=== PATIENT | female | born 1940 | race Caucasian/White ===

== ENCOUNTER → 2017-03-19 | Outpatient (CLI) | payer MEDICARE, OTHER ==
[~2017-03-19] MED LIST: CALCIUM + D3 E1 EACH; CHOL10002 PO; CREON DR 6,0001 EACH PO; DOCU100 PO; FERROUS SULFAT140 MG PO; FERSU90EL PO; Hydrocodone-Ap1 EA26 PO; LEVSOD125 PO; ONDA4ODT MM; OXAYDO7.5 MG PO; OXYB5 PO; OXYC5 PO; Omeprazole20 M1 PO; PANT20 PO; POTA10T PO; SIME80CH PO; SIMV40 PO
== END | disposition home or self-care (01) ==
LOC: LAB 10:00
DX: T81.31XA Disruption of external operation (surgical) wound, not elsewhere classified, initial encounter (principal)
CPT/HCPCS: 87070; 87205

== ENCOUNTER → 2017-03-20 | Outpatient (CLI) | payer MEDICARE, OTHER | LOC: LAB 13:15 | DX: T81.31XA Disruption of external operation (surgical) wound, not elsewhere classified, initial encounter (principal) | CPT/HCPCS: 87070; 87205 ==

== ENCOUNTER 2017-03-26 12:43 | Day surgery (SDC) | payer MEDICARE, OTHER ==
[2017-09-25] MEDS ORDERED: SIMV40 PO (10:23)
== END 2017-03-26 14:55 | disposition home or self-care (01) ==
LOC: WOUND 12:43
DX: Z48.00 Encounter for change or removal of nonsurgical wound dressing (principal); T81.31XA Disruption of external operation (surgical) wound, not elsewhere classified, initial encounter
CPT/HCPCS: G0463

== ENCOUNTER 2017-04-02 00:57 | Day surgery (SDC) | payer MEDICARE, OTHER ==
[2017-09-25] MEDS ORDERED: SIMV40 PO (10:23)
== END 2017-04-02 22:54 | disposition home or self-care (01) ==
LOC: WOUND 00:57
DX: Z48.00 Encounter for change or removal of nonsurgical wound dressing (principal); T81.31XA Disruption of external operation (surgical) wound, not elsewhere classified, initial encounter; E03.9 Hypothyroidism, unspecified; E78.5 Hyperlipidemia, unspecified
CPT/HCPCS: G0463

== ENCOUNTER 2017-04-06 00:12 | Day surgery (SDC) | payer MEDICARE, OTHER ==
[2017-09-25] MEDS ORDERED: SIMV40 PO (10:23)
== END 2017-04-06 11:55 | disposition home or self-care (01) ==
LOC: WOUND 00:12
DX: Z48.00 Encounter for change or removal of nonsurgical wound dressing (principal); T81.31XA Disruption of external operation (surgical) wound, not elsewhere classified, initial encounter; K50.90 Crohn's disease, unspecified, without complications; E78.5 Hyperlipidemia, unspecified; E03.9 Hypothyroidism, unspecified; Z86.73 Personal history of transient ischemic attack (TIA), and cerebral infarction without residual deficits
CPT/HCPCS: G0463

== ENCOUNTER 2017-04-07 13:20 | Day surgery (SDC) | payer MEDICARE, OTHER ==
[2017-09-25] MEDS ORDERED: SIMV40 PO (10:23)
== END 2017-04-07 14:10 | disposition home or self-care (01) ==
LOC: WOUND 13:20
DX: Z48.00 Encounter for change or removal of nonsurgical wound dressing (principal); T81.31XA Disruption of external operation (surgical) wound, not elsewhere classified, initial encounter; E78.5 Hyperlipidemia, unspecified; E03.9 Hypothyroidism, unspecified; K21.9 Gastro-esophageal reflux disease without esophagitis; K50.90 Crohn's disease, unspecified, without complications
CPT/HCPCS: 74150; G0463

== ENCOUNTER 2017-04-08 00:08 | Day surgery (SDC) | payer MEDICARE, OTHER ==
[2017-09-25] MEDS ORDERED: SIMV40 PO (10:23)
== END 2017-04-08 15:05 | disposition home or self-care (01) ==
LOC: WOUND 00:08
DX: Z48.00 Encounter for change or removal of nonsurgical wound dressing (principal); T81.31XA Disruption of external operation (surgical) wound, not elsewhere classified, initial encounter; E03.9 Hypothyroidism, unspecified; K50.90 Crohn's disease, unspecified, without complications; E78.5 Hyperlipidemia, unspecified; K21.9 Gastro-esophageal reflux disease without esophagitis
CPT/HCPCS: G0463

== ENCOUNTER 2017-04-09 13:40 | Day surgery (SDC) | payer MEDICARE, OTHER ==
[2017-09-25] MEDS ORDERED: SIMV40 PO (10:23)
== END 2017-04-09 14:22 | disposition home or self-care (01) ==
LOC: WOUND 13:40
DX: Z48.01 Encounter for change or removal of surgical wound dressing (principal); T81.31XA Disruption of external operation (surgical) wound, not elsewhere classified, initial encounter; K50.90 Crohn's disease, unspecified, without complications; E78.5 Hyperlipidemia, unspecified; E03.9 Hypothyroidism, unspecified
CPT/HCPCS: G0463

== ENCOUNTER 2017-04-10 13:40 | Day surgery (SDC) | payer MEDICARE, OTHER ==
[2017-09-25] MEDS ORDERED: SIMV40 PO (10:23)
== END 2017-04-10 15:59 | disposition home or self-care (01) ==
LOC: WOUND 13:40
DX: Z48.00 Encounter for change or removal of nonsurgical wound dressing (principal); T81.31XA Disruption of external operation (surgical) wound, not elsewhere classified, initial encounter; K50.90 Crohn's disease, unspecified, without complications; Z90.49 Acquired absence of other specified parts of digestive tract; E78.5 Hyperlipidemia, unspecified; E03.9 Hypothyroidism, unspecified; K21.9 Gastro-esophageal reflux disease without esophagitis
CPT/HCPCS: G0463

== ENCOUNTER 2017-04-13 00:12 | Day surgery (SDC) | payer MEDICARE, OTHER ==
[2017-09-25] MEDS ORDERED: SIMV40 PO (10:23)
== END 2017-04-13 14:35 | disposition home or self-care (01) ==
LOC: WOUND 00:12
DX: Z48.01 Encounter for change or removal of surgical wound dressing (principal); T81.31XA Disruption of external operation (surgical) wound, not elsewhere classified, initial encounter; K50.90 Crohn's disease, unspecified, without complications; K21.9 Gastro-esophageal reflux disease without esophagitis; E03.9 Hypothyroidism, unspecified; Z86.73 Personal history of transient ischemic attack (TIA), and cerebral infarction without residual deficits
CPT/HCPCS: G0463

== ENCOUNTER 2017-04-14 00:37 | Day surgery (SDC) | payer MEDICARE, OTHER ==
[2017-09-25] MEDS ORDERED: SIMV40 PO (10:23)
== END 2017-04-14 13:11 | disposition home or self-care (01) ==
LOC: WOUND 00:37
DX: Z48.01 Encounter for change or removal of surgical wound dressing (principal); T81.31XA Disruption of external operation (surgical) wound, not elsewhere classified, initial encounter; K50.90 Crohn's disease, unspecified, without complications; K21.9 Gastro-esophageal reflux disease without esophagitis; E03.9 Hypothyroidism, unspecified; E78.5 Hyperlipidemia, unspecified
CPT/HCPCS: G0463

== ENCOUNTER 2017-04-15 10:00 | Day surgery (SDC) | payer MEDICARE, OTHER ==
[2017-09-25] MEDS ORDERED: SIMV40 PO (10:23)
== END 2017-04-15 10:19 | disposition home or self-care (01) ==
LOC: WOUND 10:00
DX: Z48.01 Encounter for change or removal of surgical wound dressing (principal); T81.31XA Disruption of external operation (surgical) wound, not elsewhere classified, initial encounter; K50.90 Crohn's disease, unspecified, without complications; E78.5 Hyperlipidemia, unspecified; E03.9 Hypothyroidism, unspecified
CPT/HCPCS: G0463

== ENCOUNTER 2017-04-17 00:31 | Day surgery (SDC) | payer MEDICARE, OTHER ==
[2017-09-25] MEDS ORDERED: SIMV40 PO (10:23)
== END 2017-04-17 08:48 | disposition home or self-care (01) ==
LOC: WOUND 00:31
DX: Z48.01 Encounter for change or removal of surgical wound dressing (principal); T81.31XA Disruption of external operation (surgical) wound, not elsewhere classified, initial encounter; K50.90 Crohn's disease, unspecified, without complications; E78.5 Hyperlipidemia, unspecified; E03.9 Hypothyroidism, unspecified; K21.9 Gastro-esophageal reflux disease without esophagitis
CPT/HCPCS: G0463

== ENCOUNTER 2017-04-20 00:04 | Day surgery (SDC) | payer MEDICARE, OTHER ==
[2017-09-25] MEDS ORDERED: SIMV40 PO (10:23)
== END 2017-04-20 11:15 | disposition home or self-care (01) ==
LOC: WOUND 00:04
DX: Z48.01 Encounter for change or removal of surgical wound dressing (principal); T81.31XA Disruption of external operation (surgical) wound, not elsewhere classified, initial encounter; K50.90 Crohn's disease, unspecified, without complications; K21.9 Gastro-esophageal reflux disease without esophagitis; E78.5 Hyperlipidemia, unspecified; E03.9 Hypothyroidism, unspecified
CPT/HCPCS: G0463

== ENCOUNTER 2017-04-27 00:18 | Day surgery (SDC) | payer MEDICARE, OTHER ==
[2017-09-25] MEDS ORDERED: SIMV40 PO (10:23)
== END 2017-04-27 13:16 | disposition home or self-care (01) ==
LOC: WOUND 00:18
DX: Z48.01 Encounter for change or removal of surgical wound dressing (principal); T81.31XA Disruption of external operation (surgical) wound, not elsewhere classified, initial encounter; K50.90 Crohn's disease, unspecified, without complications; E78.5 Hyperlipidemia, unspecified; E03.9 Hypothyroidism, unspecified
CPT/HCPCS: G0463

== ENCOUNTER 2017-05-04 10:12 | Day surgery (SDC) | payer MEDICARE, OTHER ==
[2017-09-25] MEDS ORDERED: SIMV40 PO (10:23)
== END 2017-05-04 22:59 | disposition home or self-care (01) ==
LOC: WOUND 10:12
DX: Z48.01 Encounter for change or removal of surgical wound dressing (principal); T81.31XA Disruption of external operation (surgical) wound, not elsewhere classified, initial encounter; K50.90 Crohn's disease, unspecified, without complications; E78.5 Hyperlipidemia, unspecified; E03.9 Hypothyroidism, unspecified; K21.9 Gastro-esophageal reflux disease without esophagitis
CPT/HCPCS: G0463

== ENCOUNTER → 2017-09-09 | Outpatient (CLI) | payer MEDICARE, OTHER ==
[2017-09-09 09:57] LABS: BASOPHILS ABSOLUTE AUTO 0.06 K/mm3 (0.00-0.23); BASOPHILS PERCENT AUTO 1 % (0-2); EOSINOPHILS ABSOLUTE AUTO 0.28 K/mm3 (0.00-0.68); EOSINOPHILS PERCENT AUTO 3 % (0-6); Hematocrit 35.2 % (33.0-51.0); Hemoglobin 10.9 g/dL (11.5-16.0); IMMATURE GRAN ABSOLUTE AUTO 0.03 K/mm3 (0.00-0.10); IMMATURE GRAN PERCENT AUTO 0 % (0-1); LYMPHOCYTES PERCENT AUTO 14 % (21-46); MONOCYTES ABSOLUTE AUTO 0.69 K/mm3 (0.16-1.47); MONOCYTES PERCENT AUTO 8 % (4-13); Mean Corpuscular HGB 24.4 pg (26.0-34.0); Mean Corpuscular Volume 79 fL (80-100); Mean Platelet Volume 10.4 fL (9.1-12.4); NEUTROPHILS ABSOLUTE AUTO 6.46 K/mm3 (1.96-9.15); NEUTROPHILS PERCENT AUTO 74 % (41-73); Platelet Count 259 K/mm3 (150-400); RDW Coefficient Variation 15.7 % (11.7-14.2); RDW Standard Deviation 44.4 fL (35.1-46.3); Red Blood Cell Count 4.47 M/mm3 (3.80-5.20); White Blood Cell Count 8.72 K/mm3 (4.00-11.30)
[2017-09-09 10:18] LABS: Albumin, Blood 3.4 g/dL (3.4-5.0); Albumin/Globulin Ratio 0.8 (0.8-1.8); Bilirubin, Total 0.5 mg/dL (0.1-1.0); Bun/Creatinine Ratio 19.3 (12.0-20.0); Calcium, Blood 10.2 mg/dL (8.5-10.1); Creatinine, Blood 1.19 mg/dL (0.40-1.00); Globulin, Blood 4.2 g/dL (2.2-4.0); Potassium, Blood 4.5 mmol/L (3.5-5.5); Total Protein, Blood 7.6 g/dL (6.4-8.2)
== END | disposition home or self-care (01) ==
LOC: LAB EV 09:53 → LAB SHORT 09:53
PROVIDERS: Physician Assistant Medical
DX: R10.84 Generalized abdominal pain (principal)
CPT/HCPCS: 80053; 83690; 85025

== ENCOUNTER → 2017-09-25 | Outpatient (CLI) | payer MEDICARE, OTHER | LOC: LAB EV 12:08 → LAB SHORT 12:08 | DX: Z53.9 Procedure and treatment not carried out, unspecified reason (principal) | CPT/HCPCS: 87070; 87075; 87205 ==

== ENCOUNTER 2017-11-11 07:40 | Day surgery (SDC) | payer MEDICARE, OTHER | END 2017-11-11 22:52 | disposition home or self-care (01) | LOC: WOUND 07:40 | DX: Z48.01 Encounter for change or removal of surgical wound dressing (principal); Z87.891 Personal history of nicotine dependence; T81.31XA Disruption of external operation (surgical) wound, not elsewhere classified, initial encounter; E78.5 Hyperlipidemia, unspecified | CPT/HCPCS: G0463 ==

== ENCOUNTER 2017-11-18 07:53 | Day surgery (SDC) | payer MEDICARE, OTHER | END 2017-11-18 22:43 | disposition home or self-care (01) | LOC: WOUND 07:53 | DX: T81.31XA Disruption of external operation (surgical) wound, not elsewhere classified, initial encounter (principal); R03.0 Elevated blood-pressure reading, without diagnosis of hypertension; Z86.73 Personal history of transient ischemic attack (TIA), and cerebral infarction without residual deficits; E78.5 Hyperlipidemia, unspecified | CPT/HCPCS: G0463 ==

== ENCOUNTER 2017-11-23 12:22 | Day surgery (SDC) | payer MEDICARE, OTHER | END 2017-11-23 12:45 | disposition home or self-care (01) | LOC: WOUND 12:22 | DX: T81.31XD Disruption of external operation (surgical) wound, not elsewhere classified, subsequent encounter (principal); R03.0 Elevated blood-pressure reading, without diagnosis of hypertension; E78.5 Hyperlipidemia, unspecified; Z86.73 Personal history of transient ischemic attack (TIA), and cerebral infarction without residual deficits | CPT/HCPCS: G0463 ==

== ENCOUNTER 2017-11-25 07:39 | Day surgery (SDC) | payer MEDICARE, OTHER | END 2017-11-25 22:49 | disposition home or self-care (01) | LOC: WOUND 07:39 | DX: Z48.01 Encounter for change or removal of surgical wound dressing (principal); T81.31XD Disruption of external operation (surgical) wound, not elsewhere classified, subsequent encounter; R03.0 Elevated blood-pressure reading, without diagnosis of hypertension; Z86.73 Personal history of transient ischemic attack (TIA), and cerebral infarction without residual deficits; E78.5 Hyperlipidemia, unspecified | CPT/HCPCS: G0463 ==

== ENCOUNTER 2017-12-04 00:03 | Day surgery (SDC) | payer MEDICARE, OTHER | END 2017-12-04 22:48 | disposition home or self-care (01) | LOC: WOUND 00:03 | DX: T81.31XD Disruption of external operation (surgical) wound, not elsewhere classified, subsequent encounter (principal); E78.5 Hyperlipidemia, unspecified; Z86.73 Personal history of transient ischemic attack (TIA), and cerebral infarction without residual deficits; R03.0 Elevated blood-pressure reading, without diagnosis of hypertension | CPT/HCPCS: G0463 ==

== ENCOUNTER 2017-12-25 00:29 | Day surgery (SDC) | payer MEDICARE, OTHER | END 2017-12-25 22:49 | disposition home or self-care (01) | LOC: WOUND 00:29 | DX: T81.31XA Disruption of external operation (surgical) wound, not elsewhere classified, initial encounter (principal); S31.109A Unspecified open wound of abdominal wall, unspecified quadrant without penetration into peritoneal cavity, initial encounter; R03.0 Elevated blood-pressure reading, without diagnosis of hypertension; Z86.73 Personal history of transient ischemic attack (TIA), and cerebral infarction without residual deficits; E78.5 Hyperlipidemia, unspecified | CPT/HCPCS: 87070; 87075; 87205; G0463 ==

== ENCOUNTER 2017-12-29 00:07 | Day surgery (SDC) | payer MEDICARE, OTHER | END 2017-12-29 23:03 | disposition home or self-care (01) | LOC: WOUND 00:07 | DX: T81.31XA Disruption of external operation (surgical) wound, not elsewhere classified, initial encounter (principal); R03.0 Elevated blood-pressure reading, without diagnosis of hypertension ==

== ENCOUNTER 2018-01-01 00:35 | Day surgery (SDC) | payer MEDICARE, OTHER | END 2018-01-01 23:05 | disposition home or self-care (01) | LOC: WOUND 00:35 | DX: Z48.01 Encounter for change or removal of surgical wound dressing (principal); T81.31XD Disruption of external operation (surgical) wound, not elsewhere classified, subsequent encounter; R03.0 Elevated blood-pressure reading, without diagnosis of hypertension | CPT/HCPCS: G0463 ==

== ENCOUNTER 2018-02-16 00:14 | Day surgery (SDC) | payer MEDICARE, OTHER | END 2018-02-16 22:42 | disposition home or self-care (01) | LOC: WOUND 00:14 | DX: T81.31XD Disruption of external operation (surgical) wound, not elsewhere classified, subsequent encounter (principal); T81.83XD Persistent postprocedural fistula, subsequent encounter; R03.0 Elevated blood-pressure reading, without diagnosis of hypertension | CPT/HCPCS: 87070; 87075; 87077; 87186; 87205; G0463 ==

== ENCOUNTER 2018-02-17 14:33 | Day surgery (SDC) | payer MEDICARE, OTHER | END 2018-02-17 22:52 | disposition home or self-care (01) | LOC: WOUND 14:33 | DX: T81.31XD Disruption of external operation (surgical) wound, not elsewhere classified, subsequent encounter (principal); T81.83XD Persistent postprocedural fistula, subsequent encounter; R03.0 Elevated blood-pressure reading, without diagnosis of hypertension | CPT/HCPCS: G0463 ==

== ENCOUNTER 2018-02-19 00:10 | Day surgery (SDC) | payer MEDICARE, OTHER | END 2018-02-19 23:15 | disposition home or self-care (01) | LOC: WOUND 00:10 | DX: T81.31XD Disruption of external operation (surgical) wound, not elsewhere classified, subsequent encounter (principal); T81.83XD Persistent postprocedural fistula, subsequent encounter; R03.0 Elevated blood-pressure reading, without diagnosis of hypertension | CPT/HCPCS: G0463 ==

== ENCOUNTER 2018-02-22 00:13 | Day surgery (SDC) | payer MEDICARE, OTHER | END 2018-02-22 22:45 | disposition home or self-care (01) | LOC: WOUND 00:13 | DX: T81.31XD Disruption of external operation (surgical) wound, not elsewhere classified, subsequent encounter (principal); T81.83XD Persistent postprocedural fistula, subsequent encounter; R03.0 Elevated blood-pressure reading, without diagnosis of hypertension | CPT/HCPCS: G0463 ==

== ENCOUNTER 2018-02-26 07:47 | Day surgery (SDC) | payer MEDICARE, OTHER | END 2018-02-26 22:57 | disposition home or self-care (01) | LOC: WOUND 07:47 | DX: T81.31XD Disruption of external operation (surgical) wound, not elsewhere classified, subsequent encounter (principal); T81.83XD Persistent postprocedural fistula, subsequent encounter; R03.0 Elevated blood-pressure reading, without diagnosis of hypertension | CPT/HCPCS: G0463 ==

== ENCOUNTER 2018-03-05 07:46 | Day surgery (SDC) | payer MEDICARE, OTHER | END 2018-03-05 22:39 | disposition home or self-care (01) | LOC: WOUND 07:46 | DX: T81.31XD Disruption of external operation (surgical) wound, not elsewhere classified, subsequent encounter (principal); T81.83XD Persistent postprocedural fistula, subsequent encounter; R03.0 Elevated blood-pressure reading, without diagnosis of hypertension | CPT/HCPCS: G0463 ==

== ENCOUNTER 2018-03-12 00:04 | Day surgery (SDC) | payer MEDICARE, OTHER | END 2018-03-12 22:45 | disposition home or self-care (01) | LOC: WOUND 00:04 | DX: T81.31XD Disruption of external operation (surgical) wound, not elsewhere classified, subsequent encounter (principal); T81.83XD Persistent postprocedural fistula, subsequent encounter; R03.0 Elevated blood-pressure reading, without diagnosis of hypertension | CPT/HCPCS: G0463 ==

== ENCOUNTER 2018-03-26 07:50 | Day surgery (SDC) | payer MEDICARE, OTHER | END 2018-03-26 23:10 | disposition home or self-care (01) | LOC: WOUND 07:50 | DX: T81.31XD Disruption of external operation (surgical) wound, not elsewhere classified, subsequent encounter (principal); T81.83XD Persistent postprocedural fistula, subsequent encounter; R03.0 Elevated blood-pressure reading, without diagnosis of hypertension | CPT/HCPCS: G0463 ==

== ENCOUNTER 2018-04-08 07:50 | Day surgery (SDC) | payer MEDICARE, OTHER | END 2018-04-08 23:09 | disposition home or self-care (01) | LOC: WOUND 07:50 | DX: Z48.01 Encounter for change or removal of surgical wound dressing (principal); T81.31XA Disruption of external operation (surgical) wound, not elsewhere classified, initial encounter; T81.83XA Persistent postprocedural fistula, initial encounter; R03.0 Elevated blood-pressure reading, without diagnosis of hypertension | CPT/HCPCS: G0463 ==

== ENCOUNTER 2018-04-11 09:25 | Emergency (ER) | payer MEDICARE, OTHER ==
[~2018-04-11] VITALS: Ht 157.5 cm; Wt 71.2 kg
[2018-04-11 09:41] LABS: BASOPHILS ABSOLUTE AUTO 0.03 K/mm3 (0.00-0.23); BASOPHILS PERCENT AUTO 0 % (0-2); EOSINOPHILS ABSOLUTE AUTO 0.21 K/mm3 (0.00-0.68); EOSINOPHILS PERCENT AUTO 3 % (0-6); Hematocrit 28.9 % (33.0-51.0); Hemoglobin 8.5 g/dL (11.5-16.0); IMMATURE GRAN ABSOLUTE AUTO 0.12 K/mm3 (0.00-0.10); IMMATURE GRAN PERCENT AUTO 2 % (0-1); LYMPHOCYTES ABSOLUTE AUTO 1.01 K/mm3 (0.84-5.20); LYMPHOCYTES PERCENT AUTO 13 % (21-46); MONOCYTES ABSOLUTE AUTO 0.72 K/mm3 (0.16-1.47); MONOCYTES PERCENT AUTO 9 % (4-13); Mean Corpuscular HGB 21.4 pg (26.0-34.0); Mean Corpuscular HGB Conc 29.4 g/dL (31.5-36.5); Mean Corpuscular Volume 73 fL (80-100); Mean Platelet Volume 8.5 fL (9.1-12.4); NEUTROPHILS ABSOLUTE AUTO 5.86 K/mm3 (1.96-9.15); NEUTROPHILS PERCENT AUTO 74 % (41-73); Platelet Count 294 K/mm3 (150-400); RDW Coefficient Variation 15.9 % (11.7-14.2); RDW Standard Deviation 41.4 fL (35.1-46.3); Red Blood Cell Count 3.98 M/mm3 (3.80-5.20); White Blood Cell Count 7.95 K/mm3 (4.00-11.30)
[2018-04-11 09:58] LABS: Alanine Aminotransfer (ALT/SGP <6 U/L (12-78); Albumin, Blood 2.6 g/dL (3.4-5.0); Albumin/Globulin Ratio 0.5 (0.8-1.8); Alk Phos 117 U/L (50-136); Anion Gap 12 mmol/L (6-16); Aspartate Aminotrans (AST/SGOT 8 U/L (12-37); Bilirubin, Total 0.4 mg/dL (0.1-1.0); Blood Urea Nitrogen 18 mg/dL (8-24); Bun/Creatinine Ratio 13.6 (12.0-20.0); CO2, Blood 21 mmol/L (21-32); Calcium, Blood 9.6 mg/dL (8.5-10.1); Chloride, Blood 110 mmol/L (98-108); Creatinine, Blood 1.32 mg/dL (0.40-1.00); Glomerular Filtration Rate 41 (60-); Glucose, Blood 122 mg/dL (70-99); Potassium, Blood 3.4 mmol/L (3.5-5.5); Sodium, Blood 143 mmol/L (136-145); Total Protein, Blood 7.6 g/dL (6.4-8.2)
[2018-04-11] MEDS ORDERED: Cipro500 MG PO (11:57)
[2018-04-11] MEDS ORDERED: Flagyl500 MG PO (11:57)
== END 2018-04-11 12:46 | disposition home or self-care (01) ==
LOC: ER 09:25
PROVIDERS: Emergency Medicine
DX: T81.41XA Infection following a procedure, superficial incisional surgical site, initial encounter (principal); L02.211 Cutaneous abscess of abdominal wall; Z79.899 Other long term (current) drug therapy
CPT/HCPCS: 74177; 80053; 85025; 96374-59; 99284-25; J1170; Q9967

== ENCOUNTER 2018-04-22 00:11 | Day surgery (SDC) | payer MEDICARE, OTHER ==
[~2018-04-22 00:11] MED LIST changes: +Cipro500 MG PO; +Flagyl500 MG PO
== END 2018-04-22 22:45 | disposition home or self-care (01) ==
LOC: WOUND 00:11
DX: T81.31XD Disruption of external operation (surgical) wound, not elsewhere classified, subsequent encounter (principal); T81.83XD Persistent postprocedural fistula, subsequent encounter; R03.0 Elevated blood-pressure reading, without diagnosis of hypertension; K43.3 Parastomal hernia with obstruction, without gangrene
CPT/HCPCS: G0463

== ENCOUNTER 2018-05-20 00:39 | Day surgery (SDC) | payer MEDICARE, OTHER | END 2018-05-20 12:00 | disposition home or self-care (01) | LOC: WOUND 00:39 | DX: T81.31XA Disruption of external operation (surgical) wound, not elsewhere classified, initial encounter (principal); T81.83XA Persistent postprocedural fistula, initial encounter; L98.492 Non-pressure chronic ulcer of skin of other sites with fat layer exposed; K43.3 Parastomal hernia with obstruction, without gangrene; R03.0 Elevated blood-pressure reading, without diagnosis of hypertension; E78.5 Hyperlipidemia, unspecified; Z86.73 Personal history of transient ischemic attack (TIA), and cerebral infarction without residual deficits ==

== ENCOUNTER 2018-06-07 13:06 | Day surgery (SDC) | payer MEDICARE, OTHER ==
[~2018-06-07] VITALS: Ht 157.5 cm; Wt 68.2 kg
[2018-06-07] MEDS ORDERED: ESOM20 PO (13:34)
--- NOTE | 2018-06-07 13:38 | NUR ---
History, Chart, Medications and Allergies reviewed before start of procedure. Patient confirms NPO status and agrees with scheduled surgery. Lungs clear T/O to Auscultation. Patient states colon prep results clear. Patient States Post-Procedure ride home has been arranged. Pre-Op teaching done. Pt verbalizes understanding.
--- NOTE | 2018-06-07 15:09 | NUR ---
06/07/18 1509 Carlos Manuel Meade History, Chart, Medications and Allergies reviewed before start of procedure.MONITOR INTACT WITH CONTINUOUS PULSE OXIMETRY AND INTERMITTENT BP.3-LEAD EKG REVIEWED WITH PHYSICIAN PRIOR TO START OF PROCEDURE.O2 VIA N/C INTACT THROUGHOUT SEDATION/PROCEDURE. Patient confirms NPO status and agrees with scheduled surgery.PATIENT DETERMINED TO BE ASA APPROPRIATE FOR PROPOFOL SEDATION PRIOR TO START OF PROCEDURE BY DR. CAZARES.
== END 2018-06-07 16:48 | disposition home or self-care (01) ==
LOC: ORSCMMR 13:06 → ORD 14:30 → ORSCMMR 16:48
PROVIDERS: Student in an Organized Health Care Education/Training Program
PROC: 0DB68ZX Excision of Stomach, Via Natural or Artificial Opening Endoscopic, Diagnostic (ICD-10-PCS; principal; 2018-06-07 14:30)
PROC: 0DBE8ZX Excision of Large Intestine, Via Natural or Artificial Opening Endoscopic, Diagnostic (ICD-10-PCS; principal; 2018-06-07 14:30)
PROC: 0DBB8ZX Excision of Ileum, Via Natural or Artificial Opening Endoscopic, Diagnostic (ICD-10-PCS; principal; 2018-06-07 14:30)
DX: K50.90 Crohn's disease, unspecified, without complications (principal); R19.7 Diarrhea, unspecified; I12.9 Hypertensive chronic kidney disease with stage 1 through stage 4 chronic kidney disease, or unspecified chronic kidney disease; N18.9 Chronic kidney disease, unspecified; D50.9 Iron deficiency anemia, unspecified; Z86.73 Personal history of transient ischemic attack (TIA), and cerebral infarction without residual deficits; E03.9 Hypothyroidism, unspecified; Z87.891 Personal history of nicotine dependence; Z79.899 Other long term (current) drug therapy
CPT/HCPCS: 88305; 88342; J2704; J7120

== ENCOUNTER 2018-06-17 07:45 | Day surgery (SDC) | payer MEDICARE, OTHER ==
[~2018-06-17 07:45] MED LIST changes: +ESOM20 PO
== END 2018-06-17 23:38 | disposition home or self-care (01) ==
LOC: WOUND 07:45
DX: T81.31XA Disruption of external operation (surgical) wound, not elsewhere classified, initial encounter (principal); T81.83XA Persistent postprocedural fistula, initial encounter; K43.3 Parastomal hernia with obstruction, without gangrene
CPT/HCPCS: G0463

== ENCOUNTER 2018-08-10 11:56 | Day surgery (SDC) | payer MEDICARE, OTHER | END 2018-08-10 23:27 | disposition home or self-care (01) | LOC: WOUND 11:56 | DX: T81.31XA Disruption of external operation (surgical) wound, not elsewhere classified, initial encounter (principal); T81.83XA Persistent postprocedural fistula, initial encounter; I10 Essential (primary) hypertension; E55.9 Vitamin D deficiency, unspecified; D64.9 Anemia, unspecified; Z87.891 Personal history of nicotine dependence; Z86.73 Personal history of transient ischemic attack (TIA), and cerebral infarction without residual deficits ==

== ENCOUNTER 2018-09-13 08:35 | Day surgery (SDC) | payer MEDICARE, OTHER | END 2018-09-13 22:45 | disposition home or self-care (01) | LOC: WOUND 08:35 | DX: T81.83XA Persistent postprocedural fistula, initial encounter (principal); T81.31XA Disruption of external operation (surgical) wound, not elsewhere classified, initial encounter; D64.9 Anemia, unspecified | CPT/HCPCS: G0463 ==

== ENCOUNTER 2018-10-11 00:12 | Day surgery (SDC) | payer MEDICARE, OTHER | END 2018-10-11 22:54 | disposition home or self-care (01) | LOC: WOUND 00:12 | DX: T81.83XA Persistent postprocedural fistula, initial encounter (principal) | CPT/HCPCS: G0463 ==

== ENCOUNTER 2018-10-24 16:08 | Inpatient (IN) | payer MEDICARE, OTHER ==
[~2018-10-24] VITALS: Ht 157.5 cm; Wt 78.7 kg
[2018-10-24 16:29] LABS: BASOPHILS ABSOLUTE AUTO 0.01 K/mm3 (0.00-0.23); BASOPHILS PERCENT AUTO 0 % (0-2); EOSINOPHILS ABSOLUTE AUTO 0.01 K/mm3 (0.00-0.68); EOSINOPHILS PERCENT AUTO 0 % (0-6); Hematocrit 26.4 % (33.0-51.0); IMMATURE GRAN ABSOLUTE AUTO 0.08 K/mm3 (0.00-0.10); IMMATURE GRAN PERCENT AUTO 1 % (0-1); LYMPHOCYTES ABSOLUTE AUTO 0.15 K/mm3 (0.84-5.20); LYMPHOCYTES PERCENT AUTO 3 % (21-46); MONOCYTES ABSOLUTE AUTO 0.02 K/mm3 (0.16-1.47); MONOCYTES PERCENT AUTO 0 % (4-13); Mean Corpuscular HGB 18.1 pg (26.0-34.0); Mean Corpuscular HGB Conc 26.5 g/dL (31.5-36.5); Mean Corpuscular Volume 68 fL (80-100); Mean Platelet Volume 9.2 fL (9.1-12.4); NEUTROPHILS ABSOLUTE AUTO 5.27 K/mm3 (1.96-9.15); NEUTROPHILS PERCENT AUTO 95 % (41-73); Platelet Count 323 K/mm3 (150-400); RDW Coefficient Variation 17.2 % (11.7-14.2); RDW Standard Deviation 41.9 fL (35.1-46.3); Red Blood Cell Count 3.87 M/mm3 (3.80-5.20); White Blood Cell Count 5.54 K/mm3 (4.00-11.30)
[2018-10-24 16:51] LABS: Albumin, Blood 2.6 g/dL (3.4-5.0); Albumin/Globulin Ratio 0.5 (0.8-1.8); Bilirubin, Total 0.4 mg/dL (0.1-1.0); Bun/Creatinine Ratio 18.9 (12.0-20.0); Calcium, Blood 9.2 mg/dL (8.5-10.1); Creatinine, Blood 1.27 mg/dL (0.40-1.00); Globulin, Blood 4.8 g/dL (2.2-4.0); Potassium, Blood 3.9 mmol/L (3.5-5.5); Total Protein, Blood 7.4 g/dL (6.4-8.2)
[2018-10-24] MEDS ORDERED: NAPR220 PO (17:36)
[2018-10-24 22:55] LABS: Hematocrit 23.3 % (33.0-51.0); Hemoglobin 6.3 g/dL (11.5-16.0)
--- NOTE | 2018-10-25 | NUR ---
ARRIVAL TO ICU PT ARRIVED TO ICU APPROXIMATELY 2004. ON ARRIVAL, PT ALERT AND ORIENTED, COOPERATIVE BUT REPORTS FATIGUE AND DIZZINESS. BP BORDERINLINE, HR 100'S. PT HAS LOW GRADE FEVER. ADMISSION HISTORY AND ASSESSMENT COMPLETED FROM CHARTS AND WITH ASSISTANCE FROM PATIENT AND DAUGHTER. PT HAS HAD MULTIPLE VISITORS SINCE ARRIVAL. DISCUSSED CODE STATUS WITH PATIENT. ALSO VERIFIED DECLINATION OF BLOOD PRODUCTS EVEN IN INSTANCE WHEN THIS INTERVENTION WOULD BE LIFE SAVING. SINCE THEN, PT'S BLOOD PRESSURE DROPPING. SEE FLOWSHEET. IN COMMUNICATION WITH HOSPITALISTS, MULTIPLE ORDERS FOR INCREASED FLUIDS RECEIVED. PT RESTING QUITELY, CONTINUES TO WAKE UP AND BE ORIENTED WITH VERBAL STIMULI. H&H CONTINUES TO DROP. PT EDUCATED EXTENSIVELY AND EXHIBITS KNOWLEDGE. LACTIC ACID IMPROVING.
[2018-10-25 00:37] LABS: Adenovirus F 40/41 Not Detected (NOT DETECT); Astrovirus Not Detected (NOT DETECT); Campylobacter Sp Not Detected (NOT DETECT); Cryptosporidium Not Detected (NOT DETECT); Cyclospora Cayetanensis Not Detected (NOT DETECT); E. Coli O157 Not Detected (NOT DETECT); Entamoeba Histolytica Not Detected (NOT DETECT); Enteroaggregative E. coli-EAEC Not Detected (NOT DETECT); Enteropathogenic E. coli-EPEC Not Detected (NOT DETECT); Enterotoxigenic E. coli-ETEC Not Detected (NOT DETECT); Giardia Lamblia Not Detected (NOT DETECT); Norovirus GI/GII Not Detected (NOT DETECT); Plesiomonas Shigelloides Not Detected (NOT DETECT); Rotavirus A Not Detected (NOT DETECT); Salmonella Sp Not Detected (NOT DETECT); Sapovirus Not Detected (NOT DETECT); Shiga Toxin-prod E. coli-STEC Not Detected (NOT DETECT); Shigella/Enteroin E. coli-EIEC Not Detected (NOT DETECT); Vibrio Cholerae Not Detected (NOT DETECT); Vibrio Sp Not Detected (NOT DETECT); Yersinia Enterocolitica Not Detected (NOT DETECT)
--- NOTE | 2018-10-25 00:54 | NUR ---
BLOOD PRESSURE / PROVIDER COMMUNICATION PT'S BLOOD PRESSURE CONTINUES TO BE LOW AFTER MULTIPLE BOLUSES. NO ACTIVE BLEEDING VISIBLE. PT CONTINUES TO AROUSE AND BE ORIENTED, BUT REPORTS FEELING EXHAUSTED. TROPONIN INCREASED. DR. SWARTZ UPDATED. NEW ORDER FOR 1 L BOLUS AND REPEAT LACTIC ACID ALONG WITH ALL SCHEDULED MORNING LABS AT 0200. DR. SWARTZ DISCUSSED POSSIBLE PERIPHERAL LOW DOSE DOPAMINE IF MAP NOT GREATER THAN [address] SWARTZ TO BEDSIDE FOR ASSESSMENT AND DISCUSSION WITH PATIENT. PT AGREEABLE TO PRESSOR MEDICATIONS. PT ASKED DR. SWARTZ ABOUT IRON REPLACEMENT. PT EDUCATED BY MD ABOUT ONSET OF IRON SUPPLEMENTATION AND NEED FOR FASTER ACTING INTERVENTIONS.
[2018-10-25 02:12] LABS: BASOPHILS ABSOLUTE AUTO 0.06 K/mm3 (0.00-0.23); BASOPHILS PERCENT AUTO 0 % (0-2); Hematocrit 21.2 % (33.0-51.0); LYMPHOCYTES ABSOLUTE AUTO 0.25 K/mm3 (0.84-5.20); LYMPHOCYTES PERCENT AUTO 1 % (21-46); MONOCYTES ABSOLUTE AUTO 0.56 K/mm3 (0.16-1.47); MONOCYTES PERCENT AUTO 2 % (4-13); Mean Corpuscular HGB 18.4 pg (26.0-34.0); Mean Corpuscular HGB Conc 27.4 g/dL (31.5-36.5); Mean Corpuscular Volume 67 fL (80-100); Mean Platelet Volume 9.5 fL (9.1-12.4); NRBC ABSOLUTE 0.02 K/mm3 (0.00-0.02); NRBC Auto 0.1 /100 WBC (0.0-0.2); Platelet Count 263 K/mm3 (150-400); RDW Coefficient Variation 17.3 % (11.7-14.2); RDW Standard Deviation 42.2 fL (35.1-46.3); Red Blood Cell Count 3.16 M/mm3 (3.80-5.20); White Blood Cell Count 35.03 K/mm3 (4.00-11.30)
[2018-10-25 02:16] LABS: EOSINOPHILS ABSOLUTE AUTO 0.03 K/mm3 (0.00-0.68); EOSINOPHILS PERCENT AUTO 0 % (0-6); Hemoglobin 5.8 g/dL (11.5-16.0); IMMATURE GRAN ABSOLUTE AUTO 0.59 K/mm3 (0.00-0.10); IMMATURE GRAN PERCENT AUTO 2 % (0-1); NEUTROPHILS ABSOLUTE AUTO 33.54 K/mm3 (1.96-9.15); NEUTROPHILS PERCENT AUTO 96 % (41-73)
[2018-10-25 02:28] LABS: BAND PERCENT MAN 14 % (0-8); BASOPHILS PERCENT MAN 0 % (0-2); EOSINOPHILS PERCENT MAN 0 % (0-6); METAMYELOCYTE ABSOLUTE MAN 0.35 K/mm3 (0.00-0.00); METAMYELOCYTE PERCENT MAN 1 % (0-0); MONOCYTES PERCENT MAN 0 % (4-13); NEUTROPHILS ABSOLUTE MAN 34.67 K/mm3 (1.96-9.15); SEG NEUTROPHILS PERCENT MAN 85 % (41-73); TOTAL CELLS COUNTED 100
[2018-10-25 02:34] LABS: Bun/Creatinine Ratio 16.8 (12.0-20.0); Calcium, Blood 8.3 mg/dL (8.5-10.1); Creatinine, Blood 1.31 mg/dL (0.40-1.00); Potassium, Blood 3.8 mmol/L (3.5-5.5); Troponin I 0.213 ng/mL (0.000-0.040)
[2018-10-25 02:36] LABS: Thyroid Stimulating Hormone 0.748 uIU/mL (0.360-4.800)
--- NOTE | 2018-10-25 02:51 | NUR ---
CRITICAL VALUES / BLOOD PRESSURE UPDATED DR. SWARTZ ON MOST RECENT HEMOGLOBIN, HEMATOCRIT, LACTIC AND BLOOD PRESSURES. NEW ORDER TO INITIATE DOPAMINE TO MAINTAIN MAP GREATER THAN 60, CHANGE FLUIDS TO NORMAL SALINE AT 150 ML/HR. PER DR. BELLE, CONTINUE WITH PLAN TO HAVE DR. TAMAYO CONSULT IN MORNING NO BLEEDING HAS BEEN VISIUALIZED AT THIS POINT. PT CONTINUES TO BE AROUSABLE AND ORIENTED.
[2018-10-25 05:27] LABS: Source, Urine Catheter
[2018-10-25 05:30] LABS: Appearance, Urine Clear (Clear); Bilirubin, Urine Neg (Neg); Blood, Urine Neg (Neg); Color, Urine Amber (P-Yellow); Glucose Qualitative, Urine Neg (Neg); Ketones, Urine Neg (Neg); Leukocyte Esterase, Urine 1+ (Neg); Nitrite, Urine Neg (Neg); Protein, Urine 1+ (Neg); Urobilinogen, Urine NORM (Normal)
[2018-10-25 05:37] LABS: Amorphous Light (0-Heavy); Bacteria Few /hpf; Red Blood Cells, Urine 0-2 /hpf (0-2); Squamous Epithelial Cells Rare /hpf (Few)
[2018-10-25 06:19] LABS: Mean Corpuscular HGB 18.2 pg (26.0-34.0); Mean Corpuscular HGB Conc 27.3 g/dL (31.5-36.5); Mean Corpuscular Volume 67 fL (80-100); Mean Platelet Volume 9.2 fL (9.1-12.4); NRBC ABSOLUTE 0.02 K/mm3 (0.00-0.02); NRBC Auto 0.1 /100 WBC (0.0-0.2); Platelet Count 265 K/mm3 (150-400); RDW Coefficient Variation 17.3 % (11.7-14.2); RDW Standard Deviation 41.9 fL (35.1-46.3); Red Blood Cell Count 3.29 M/mm3 (3.80-5.20); White Blood Cell Count 37.91 K/mm3 (4.00-11.30)
--- NOTE | 2018-10-25 06:23 | NUR ---
SUMMARY SINCE PREVIOUS NOTE, PT HAS RECEIVED ORDERED FLUIDS. BLOOD PRESSURE HAS STABALIZED WITH MAPS GREATER THAN 6O, SO DOPAMINE HAS NOT BEEN STARTED. HR STABLE IN 90'S-100'S. PT DOES HAVE AN INCREASED TEMP THIS MORNING, EXTRA BLANKETS REMOVED. CONTINUES TO BE NO VISIBLE BLEEDING. BUCIO INSERTED FOR RETENTION AND STRICT I/O HOURLY MONITORING. PT MORE TALKATIVE AND SMILING THIS MORNING, REPORTS FEELING "A LITTLE BETTER." OTHERWISE, NO CHANGES. SEE FLOWSHEETS.
[2018-10-25 07:08] LABS: BAND PERCENT MAN 26 % (0-8); BASOPHILS ABSOLUTE MAN 0.37 K/mm3 (0.00-0.23); BASOPHILS PERCENT MAN 1 % (0-2); EOSINOPHILS PERCENT MAN 0 % (0-6); MONOCYTES ABSOLUTE MAN 0.37 K/mm3 (0.16-1.47); MONOCYTES PERCENT MAN 1 % (4-13); NEUTROPHILS ABSOLUTE MAN 37.15 K/mm3 (1.96-9.15); SEG NEUTROPHILS PERCENT MAN 72 % (41-73); TOTAL CELLS COUNTED 100
--- NOTE | 2018-10-25 07:30 | NUR ---
BEGINNING OF SHIFT Assumed care at 0700 with Anna KEBEDE. Bedside report recieved from Joanie KEBEDE. Pt A&O x 4. States she is feeling weak. Pt on room air. Sinus tachycardia per monitor. Colostomy to RUQ. Two collection bags, one over stoma, one over fistula. Pt has nonhealing wound to upper abdomen, midline. Pt states she visits the wound clinic once a month for dressing changes. She does dressing changes at home once a week. Pt states dressing is due to be changed. Dr Ansari at bedside. Plan of care discussed. Notified provider that pt does not have additional H&H ordered. Discussed BP, HR and orders for dopamine. Verbal order received to change dopamine to levophed if pressure support becomes necessary. Requested PICC placement. Verbal orders received. No family in room at this time. Plan of care discussed with patient. Pt agreeable to plan of care.
--- NOTE | 2018-10-25 08:22 | NUR ---
CALL PLACED TO DR ANSARI Pt febrile, 101.[address] to Dr Ansari to update. Orders given for one time dose of tylenol. Pt to remain NPO otherwise. Pt states rectum is not accessible, it has been surgically closed. States it cannot be used for temperature or med administration.
[2018-10-25 09:09] LABS: Hematocrit 21.8 % (33.0-51.0)
--- NOTE | 2018-10-25 09:15 | NUR ---
DR MICHAEL IN TO SEE PT Provider in to see pt. Plan of care discussed. Provider states pt is not candidate for surgical intervention. States pt requires GI. This RN notified provider that GI has been consulted.
--- NOTE | 2018-10-25 10:00 | NUR ---
CALL PLACED TO DR TAMAYO This RN placed call to Dr Tamayo. Inquired when provider would be in to see pt. Provider states plan to see pt this afternoon. This RN discussed plan of care with provider. Notified provider of hypotension requiring vasopressors, tachycardia. Discussed H&H and pt's refusal of blood products due to oriental orthodox beliefs- Adventism. Provider aware pt is full code status. This RN also notified provider that Dr Power rounded on patient and stated pt is not candidate for surgical intervention. Provider states concern that pt is in septic shock instead of hemorrhagic shock. Provider states plan to see pt this afternoon.
--- NOTE | 2018-10-25 10:15 | NUR ---
ASSISTANT PROFESSOR OF GEOGRAPHY CONSULTATION This RN placed call to Dr Ansari to request lead slot technician consultation. This RN notified provider that levophed is going to be started due to hypotension with MAP between 50 and 55. This RN also notified Dr Ansari that Dr Power does not plan on performing surgery and Dr Cotter will not be by to see pt until this afternoon. This RN notified Dr Wright of consultation. Plan of care discussed with provider.
--- NOTE | 2018-10-25 11:05 | NUR ---
DR TAMAYO AT BEDSIDE Provider states plan to continue monitoring pt and continue with antibiotics for infection. No plans to scope at this time.
--- NOTE | 2018-10-25 11:45 | NUR ---
UPDATE Ostomy appliance changed due to leakage. Call placed to daughter to ask her to bring pt's home supply as hospital supply is too big for stoma and fistual to each have an appliance. Photographs taken of fistula, stoma, and upper abdomen wound. Wound care instructions obtained from wound clinic. Site cleaned with sterile saline. Covered with pink dressing.
--- NOTE | 2018-10-25 14:20 | NUR ---
RINGS REMOVED 3 rings removed from pt hands using lotion as pt's hands are swelling. Rings sent home with patient's daughter.
[2018-10-25 14:35] LABS: Hematocrit 21.1 % (33.0-51.0)
[2018-10-25 14:42] LABS: Hemoglobin 5.8 g/dL (11.5-16.0)
--- NOTE | 2018-10-25 17:18 | NUR ---
Per admit trigger, I met with Neli to offer prayer and spiritual support. she is a member of the [employer]hovah's witness [place] community and feels well-loved and supported there. She declined prayer and states her roman catholic is praying for her. I will remain available.
--- NOTE | 2018-10-25 18:05 | NUR ---
SUMMARY Pt remains alert and oriented. Sinus rhythm per monitor, rate averaging between 85 and 95. No ectopy. Pt currently on 5 mcg/min levophed. MAP averaging between 65 and 75. Pt on clear liquid diet, tolerating well. No nausea or abdominal pain. Light brown output from colostomy. No drainage from fistua since appliance replaced. No bright red output from either site. Sites photographed. ABD wound photographed, cleansed, and dressed with pink foam dressing. Small amount of crusty, brown drainage noted on old dressing. Dark jane urine from matthews catheter. Pt has had several visitors throughout shift. Will continue to closely monitor until care handoff and bedside report with oncoming RN.
[2018-10-25 20:36] LABS: Hematocrit 21.7 % (33.0-51.0)
[2018-10-25 20:38] LABS: Hemoglobin 5.9 g/dL (11.5-16.0)
--- NOTE | 2018-10-25 22:02 | NUR ---
ASSUMED PT CARE AT 1915 FROM DELIO TOLBERT PT RESTING IN BED WITH FAMILY AT BEDSIDE. ALERT AND ORIENTED AND ABLE TO MAKE NEEDS KNOWN. LEVOPHED INFUSING AT 5MCG/MIN WITH NS TKO. PT DENIES ANY PAIN AT THIS TIME. FEBRILE AT 100.0; PT STATES SHE HAS CHILLS AND WOULD LIKE MORE TYLENOL. LOOKED UP ORDERS ON EMAR; NO ORDERS FOR TYLENOL. INCREASED ROOM TEMPERATURE TO 70 DEGREES TO PREVENT PT FROM SHIVERING; AFTER AN HOUR TEMP DECREASED TO 98.8. WILL CONTINUE TO MONITOR AND WILL NOTIFY PHYSICIAN FOR UNCONTROLLED, ELEVATED TEMP. BOTH COLOSTOMY APPLIANCES ARE INTACT; PT IS PRODUCING YELLOW/GREEN STOOL THAT IS LOOSE. PT IS INDPENDENT WITH CARES AT HOME, BUT ENCOURAGED TO CALL FOR ASSISTANCE WHEN SHE FEELS THE NEED TO BURP OR EMPTY BAG; PT VERBALIZED UNDERSTANDING. LEVOPHED WAS ABLE TO GET TITRATED OFF D/T SBP 115-120'S; CURRENTLY SUSTAINING WITH MAP GREATER THAN 60; WILL CONTINUE TO MONITOR. CALL LIGHT IS WITHIN REACH AND PT IS ABLE TO MAKE HER NEEDS KNOWN.
[2018-10-26 04:18] LABS: BASOPHILS ABSOLUTE AUTO 0.03 K/mm3 (0.00-0.23); BASOPHILS PERCENT AUTO 0 % (0-2); Hematocrit 20.2 % (33.0-51.0); LYMPHOCYTES ABSOLUTE AUTO 0.54 K/mm3 (0.84-5.20); LYMPHOCYTES PERCENT AUTO 3 % (21-46); MONOCYTES ABSOLUTE AUTO 0.49 K/mm3 (0.16-1.47); MONOCYTES PERCENT AUTO 3 % (4-13); Mean Corpuscular HGB 18.8 pg (26.0-34.0); Mean Corpuscular HGB Conc 27.7 g/dL (31.5-36.5); Mean Corpuscular Volume 68 fL (80-100); Mean Platelet Volume 9.4 fL (9.1-12.4); Platelet Count 207 K/mm3 (150-400); RDW Coefficient Variation 17.5 % (11.7-14.2); RDW Standard Deviation 42.4 fL (35.1-46.3); Red Blood Cell Count 2.98 M/mm3 (3.80-5.20); White Blood Cell Count 17.39 K/mm3 (4.00-11.30)
[2018-10-26 04:19] LABS: EOSINOPHILS ABSOLUTE AUTO 0.14 K/mm3 (0.00-0.68); EOSINOPHILS PERCENT AUTO 1 % (0-6); Hemoglobin 5.6 g/dL (11.5-16.0); IMMATURE GRAN ABSOLUTE AUTO 0.18 K/mm3 (0.00-0.10); IMMATURE GRAN PERCENT AUTO 1 % (0-1); NEUTROPHILS ABSOLUTE AUTO 16.01 K/mm3 (1.96-9.15); NEUTROPHILS PERCENT AUTO 92 % (41-73)
[2018-10-26 04:32] LABS: Bun/Creatinine Ratio 14.9 (12.0-20.0); Calcium, Blood 7.9 mg/dL (8.5-10.1); Creatinine, Blood 1.21 mg/dL (0.40-1.00); Magnesium, Blood 1.6 mg/dL (1.6-2.4); Potassium, Blood 3.7 mmol/L (3.5-5.5)
--- NOTE | 2018-10-26 06:04 | NUR ---
END OF SHIFT SUMMARY PT HAS REQUIRED LEVOPHED TITRATION T/O NIGHT. CURRENTLY AT 2MCG/MIN WITH SBP'S 100-110'S AND MAP 65-70. PT IS ALERT AND ORIENTED X4; ABLE TO MAKE NEEDS KNOWN. SHE IS VERY PLEASANT AND COOPERATIVE WITH CARE. TMAX THIS SHIFT WAS 100.0; AFTER PT STATED SHE HAD CHILLS ROOM TEMPERATURE TURNED TO 70 DEGREES AND TEMP WAS MONITORED CLOSELY OVER THE NEXT TWO HOURS WITH TEMP DECREASING TO 98 DEGREES IN WHICH IT HAS MAINTAINED AT 98.0 DEGREES FAHRENHEIT. COLOSTOMY CHANGED X1; APPLIANCE HAS REMAINED INTACT. STOOL IS YELLOW/VILLARREAL IN COLOR; LOOSE, BUT PASTY IN NATURE; THEREFORE, UNABLE TO MEASURE OUTPUT. OSTOMY BURPED X2. BUCIO CATHETER REMAINS PATENT AND DRAINING TO GRAVITY; DARK YELLOW IN COLOR. SKIN COLOR REMAINS PALE. NO SIGNS OF ACTIVE BLEEDING FROM OSTOMY SITES. HGB HAS REMAINED LOW AT 5.6 WITH THIS MORNINGS LABS. PT HAS BEEN ON 2L OF OXYGEN VIA NC ALL NIGHT. CALL LIGHT LEFT WITHIN REACH; PT ABLE TO MAKE HER NEEDS KNOWN. WILL CONTINUE TO MONITOR UNTIL REPORT IS HANDED OFF TO ONCOMING RN.
--- NOTE | 2018-10-26 07:30 | NUR ---
BEGINNING OF SHIFT Assumed care of pt at 0700 with Anna KEBEDE. Bedside report recieved from Linda KEBEDE. Pt on 2 LPM NC. SpO2 90% or greater. SR per monitor, rate 96. Currently on levophed 2 mcg/min. MAP averaging between 65 and 75. Tolerating clear liquids well. Liquid brown/yellow output noted in both ostomy bags. Marte catheter draining dark jane urine. Pt denies need at this time.
[2018-10-26 08:00] LABS: Percent Saturation 6.7 % (15.0-50.0)
--- NOTE | 2018-10-26 09:48 | NUR ---
UPDATE Dr Aleman in to see pt. Plan of care discussed. This RN inquired about adding aranesp. Provider states plan to ask floor layer tile if aranesp would be beneficial for this pt. Dr Wright in to see pt. States plan to discontinue labs for today and possibly tomorrow. States plan to advance pt's diet as tolerated.
--- NOTE | 2018-10-26 11:30 | NUR ---
HIP PAIN Pt states she is having hip pain. Requests tylenol. Discussed with Dr Wright. New orders given.
--- NOTE | 2018-10-26 14:37 | NUR ---
Initial Visit: Palliative Care Consult for Advanced Care Planning. Pt is A&O and reports 6/10 headache pain. She denies dyspnea at rest and states the oxygen is helping. Pt denies anxiety and nausea. Engaged in therapeutic discussion regarding advanced care planning. Pt is Jehovah Witness and lives by herself. She has 3 children one of whom lives locally. Discussed residential planning and the possibility of needing assistance with care as disease process takes it coarse. Pt reports financial ability for in homecaregivers if the need ever arises. Discussed current AD on file and Pt reports wishes are the same. She reports wanting chest compression and if needed intubation for a limited amount of time. She reports not wanting residential intubation. Educated on life sustaining measures including risk factors with V/U made by Pt. Offered to call [employer] and Pt denies need. She states Mr Seals and Mr Benavides has already visited with her. Pt reports no other concerns. Spoke with Pt's bedside nurse Lazara and discussed case. Reported Pt's 6/[address] Spoke with Dr Aleman and discussed case. Dr Aleman is considering options including whether Pt is a candidate for Erythropoietin. Palliative Care will remain available.
--- NOTE | 2018-10-26 15:57 | NUR ---
UPDATE Bedbath complete. Pt able to wash her own face and upper extremities. At this time, levophed is off. Dr Wright updated.
--- NOTE | 2018-10-26 16:45 | NUR ---
DR TAMAYO AT BEDSIDE Plan of care discussed with provider. Provider states may advance diet to regular diet. Provider states no plan to perform endoscopy. Provider states plan to start aranesp after iron replacement. Provider states he would like pt to remain in ICU overnight but is okay with pt moving to PCU or medical floor tomorrow. Pt verbalizes agreement of plan of care.
--- NOTE | 2018-10-26 18:19 | NUR ---
SUMMARY Pt offered regular meal tray, but declined, stating she would like to continue with full liquids today and start regular diet tommorow, due to lack of appetite. At this time, pt remains off levophed. SBP averaging between 125 and 145. No bloody output from stoma or fistula today. Both site drain liquid brown/yellow stool. Pt has not gotten OOB this shift but states she is feeling much better. Will continue to closely monitor until care handoff and bedside report with oncoming RN.
--- NOTE | 2018-10-27 05:09 | NUR ---
SHIFT SUMMARY PT SLEEPING IN ROOM COMFORTABLY AT THIS TIME. NO ACUTE CHANGES IN STATUS T/O NIGHT. PT SLEPT WELL T/O NIGHT, DID NOT CALL FOR ANY PAIN MEDS. DENIED NEEDS, AND DENIED CP. RESP EVEN UNLBAORED ON 2L NC W/ SATS >92%. PT ABLE TO ADJUST SELF IN BED, PT WAS RE-ADJUSTED BEFORE BED WITH PILLOW UNDER HIPS. PT T-MAX DURING NIGHT WAS 99.9. FLAT SHEET ON PT, TEMP LOWERED IN ROOM. TEMP BACK DOWN TO 97.9. DENIED PAIN, DENIED OTHER NEEDS. BUCIO CATH DRAINING TO GRAVITY. CALL LIGHT IN REACH.
--- NOTE | 2018-10-27 08:11 | NUR ---
PT A/O W/O PAIN OR DISTRESS. NOTED SOME THROAT SORENESS AND OCC DRY COUGH BUT IS ON O2 AT 2L. 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 SITTING UP EATING AND WILL FOLLOW PT STATUS.
--- NOTE | 2018-10-27 11:05 | NUR ---
PT REPORT GIVEN TO TIP Harper RN AND WILL TRANSPORT TO [facility] AND WILL REQUEST PUMP ERECTOR HELPER TO TRANSPORT.
--- NOTE | 2018-10-27 14:36 | NUR ---
Pt visit this afternoon. Pt is resting in bed upon arrival and denies pain at this time. Pt denies dyspnea and anxiety. Discussed new treatment plan for her anemia and Pt is agreeable. Pt engages in conversation regarding code status that took place yesterday. Pt reports further consideration of code status and does not want intubation at any time. Educated on CPR and intubation including risk factors with V/U made by Pt. Offered to help with completing a POLST and Pt denies need at this time. She states "My advanced directive is good enough". Pt reports no other concerns at this time. Spoke with bedside nurse Ellie and discussed case. Called and spoke with Dr Aleman and relayed code status conversation. Placed new code status order for DNI and limited code per V/O from Dr Aleman. Palliative Care will remain available.
--- NOTE | 2018-10-27 17:26 | NUR ---
NURSING PCU DAYSHIFT SUMMARY: Assumed care of pt at approx 1130. Arrived from ICU via w/c accompanied by PCT. Transfer to unit bed w/SBA though weakness is noted. Pt is a/o, pleasant, cooperative w/care. Denies any discomfort at rest. Skin is fragile though no breakdown seen. Tele in place, NSR, no c/o CP/pressure, SBP 140's, no noted edema. L/S cta t/o, denies dyspnea, O2 sat stable on 2L NC. Abd SNT, ostomy x2 noted to R abd and draining liquid stool, FC w/stat lock present and draining well. PICC present in RUE, s/l w/abx as scheduled. Pt denies any current needs or questions regarding plan of care. Has demonstrated use of call system w/o difficulty. Family at bedside this afternoon. Has remained afebrile along w/no cardiac or respiratory changes noted since arrival to unit. Call light remains in reach, cont to monitor until rpt is given to NOC RN.
--- NOTE | 2018-10-28 05:13 | NUR ---
PATIENT LAYING IN BED WITHOUT ANY SIGNS OF PAIN. PATIENT CALLS APPROPRIATELY FOR ASSISTANCE WHEN NEEDED. VITALS STABLE. PATIENT DENIES ANY PAIN OR NEEDS.
--- NOTE | 2018-10-28 07:21 | NUR ---
NURSING PCU DAYSHIFT: Assumed care of pt at approx 0700. A/O, very pleasant and cooperative w/care. Denies any pain/discomfort at rest. General weakness noted, transfers w/one staff assist, assists w/repositioning. Skin is fragile, scattered bruising to UE's, small chronic wound present on midline abd w/mepilex in place. Tele in place, NSR, no c/o CP/pressure, SBP 140's prior to a.m. meds, trace BLE edema. L/S cta t/o, O2 sat mid 90's on RA, denies dyspnea, no noted cough. Abd mildly distended, BT+, ostomy x2 present to R abd, FC w/stat lock present and draining tea colored urine. PICC present in RUE, s/l w/abx as scheduled. Pt assisted w/repositioning in bed, independently performing oral care at this time. Denies any current needs or questions regarding plan of care. Call light in reach and pt is able to use w/o difficulty. Awaiting rounding from PMD, cont to monitor for any changes.
--- NOTE | 2018-10-28 17:12 | NUR ---
NURSING PCU DAYSHIFT SUMMARY: No significant changes noted t/o the shift. BP continues to improve, SBP 130's this afternoon. Pt has remained afebrile t/o the shift, respiratory status remains stable w/O2 sat maintaining mid to upper 90's on RA. Pt has had friends/family at bedside intermittently t/o the day. Appears to be in good spirits w/no questions/needs noted at this time. Call light in reach, cont to monitor until rpt is given to NOC RN.
--- NOTE | 2018-10-29 06:08 | NUR ---
PATIENT MOVING INDEPENDENTLY IN BED. DENIES ANY PAIN THROUGH NIGHT. VITALS STABLE. CALLS APPROPRIATELY. SLEPT MOST OF THE NIGHT.
[2018-10-29 09:11] LABS: Hematocrit 24.2 % (33.0-51.0); Hemoglobin 6.6 g/dL (11.5-16.0)
[2018-10-29 09:30] LABS: Alanine Aminotransfer (ALT/SGP 15 U/L (12-78); Albumin, Blood 1.9 g/dL (3.4-5.0); Albumin/Globulin Ratio 0.5 (0.8-1.8); Alk Phos 413 U/L (50-136); Anion Gap 7 mmol/L (6-16); Aspartate Aminotrans (AST/SGOT 21 U/L (12-37); Bilirubin, Total 0.3 mg/dL (0.1-1.0); Blood Urea Nitrogen 11 mg/dL (8-24); Bun/Creatinine Ratio 11.7 (12.0-20.0); CO2, Blood 25 mmol/L (21-32); Calcium, Blood 8.7 mg/dL (8.5-10.1); Chloride, Blood 110 mmol/L (98-108); Creatinine, Blood 0.94 mg/dL (0.40-1.00); Globulin, Blood 4.1 g/dL (2.2-4.0); Glomerular Filtration Rate >60 (60-); Glucose, Blood 141 mg/dL (70-99); Potassium, Blood 3.6 mmol/L (3.5-5.5); Sodium, Blood 142 mmol/L (136-145)
--- NOTE | 2018-10-29 12:46 | NUR ---
REPORT CALLED TO MEDICAL FLOOR RN. PT TO BE TRANSPORTED BY BED.
--- NOTE | 2018-10-29 18:23 | NUR ---
SHIFT SUMMARY NO ACUTE CONCERNS AT THIS TIME. PATIENT IS PLEASANT, HAS NOT MOVED FROM THE BED YET. STILL CONCERNED THAT SHE IS FEELING VERY WEAK. PATIENT HAS SOME COLOR TO HER AND NO ACUTE CONCERNS. DOCTOR BARKLEY GAVE TELEPHONE PERMISSION TO LEAVE THE BUCIO UNTIL SHE IS SEEN BY PHYSICAL THERAPY.
--- NOTE | 2018-10-30 05:03 | NUR ---
SHIFT SUMMARY NO ACUTE CHANGES TONIGHT. ADMINSITERED IV ABX PER ORDERS TO PICC LINE IN [facility] W/O DIFFICULTIES. VSS. BUCIO CATH IS PATENT AND DRAINING BELOW THE LEVEL OF THE WAIST, OFF THE FLOOR. OSTOMY TO RUQ SELF-CARED FOR BY PT. PT IS A&OX4, CALL LT APPROP. WILL CONT TO MONITOR AND PROVIDE CARE UNTIL PRESUMED BY ONCOMING RN.
--- NOTE | 2018-10-30 17:09 | NUR ---
SUMMARY PT RESTING IN BED WATCHING TV, PT HAS WORKED WITH PT/OT AND IS ABLE TO GET UP WITH ONE PERSON ASSIST WITH THE WALKER, PT HAS BEEN UP TO THE CHAIR AND UP TO THE BATHROOM SEVERAL TIMES TODAY, PLEASANT AND COOPERATIVE WITH CARE, NO S/S BLEEDING FROM THE OSTOMIES, VSS, NO ACUTE CHANGES, WILL CONT TO MONITOR
--- NOTE | 2018-10-31 05:10 | NUR ---
SHIFT SUMMARY NO ACUTE CHANGES TONIGHT. PT REPORTS FEELING STRONGER AND BACK TO BASELINE "NEARLY". AMBULATES TO BR SEVERAL TIMES TONIGHT, SBA c FWW. GAIT IS STEADY. RUQ OSTOMY WNL, PT PROVIDES PM CARE INDEPENDENTLY. FORTUNATO ROSARIO'Zofia EARLIER IN DAY, HAS VOIDED SEVERAL TIMES SINCE D/C. RESP E/U ON RA, LS CLEAR. PLAN OF CARE REMAINS THE SAME AND H/H CONT TO RISE SLOWLY. WILL CONT TO MONITOR AND PROVIDE CARE UNTIL PRESUMED BY ONCOMING RN.
--- NOTE | 2018-10-31 17:39 | NUR ---
PT HAS BEEN ALERT AND ORIENTED THROUGHOUT SHIFT. PT STANDBY TRANSFER TO BEDSIDE CHAIR. PT STANDBY TO BATHROOM. PT WALKED IN WHITE X1 WITH P/T LATE AM. PT CURRENTLY IN BEDSIDE CHAIR WATCHING TELEVISION. OSTOMY BAGS CHANGED THIS AM, NO SIGNS OF BLEEDING. PT COOPERATIVE WITH CARE. VITAL SIGNS STABLE THROUGHOUT SHIFT. WILL CONTINUE TO MONITOR.
--- NOTE | 2018-11-01 05:00 | NUR ---
SHIFT SUMMARY STOMA APPPLIANCES CHANGED TONIGHT BY THIS RN. TWO STOMAS TO RUQ WNL. PT IS A&OX4, INDEPENDENT IN RM. AMBULATES c FWW, STEADY GAIT. PICC LINE TO [facility]ISA IS PATENT AND DRAWING, SITE WNL. PT DENIES ANY PAIN OR DISCOMFORT, RESP E/U ON RA. PLAN IS FOR PT TO D/C HOME THURSDAY OR THURSDAY. WILL CONT TO MONITOR AND PROVIDE CARE UNTIL PRESUMED BY ONCOMING RN.
--- NOTE | 2018-11-01 16:47 | NUR ---
SHIFT SUMMARY PT ABD WOUND CLEANED, CHANGED, & PHOTOGRAPHED THIS SHIFT. NO OTHER CHANGES IN ASSESSMENT AT THIS TIME. VSS. PT IND IN CLEANING OSTOMY. DENIES NEEDS AT THIS TIME. WILL CONTINUE TO MONITOR UNTIL TURNOVER IS COMPLETE.
--- NOTE | 2018-11-02 04:23 | NUR ---
SHIFT SUMMARY NO ISSUES OR COMPLAINTS NOTED. PT SLEPT T/O SHIFT. PT CURRENTLY SLEEPING IN NO DISTRESS. CALL LIGHT IN REACH.
[2018-11-02 04:48] LABS: BASOPHILS ABSOLUTE AUTO 0.08 K/mm3 (0.00-0.23); BASOPHILS PERCENT AUTO 1 % (0-2); Hematocrit 26.6 % (33.0-51.0); Hemoglobin 7.1 g/dL (11.5-16.0); LYMPHOCYTES ABSOLUTE AUTO 1.51 K/mm3 (0.84-5.20); LYMPHOCYTES PERCENT AUTO 12 % (21-46); MONOCYTES ABSOLUTE AUTO 0.66 K/mm3 (0.16-1.47); MONOCYTES PERCENT AUTO 5 % (4-13); Mean Corpuscular HGB 19.7 pg (26.0-34.0); Mean Corpuscular HGB Conc 26.7 g/dL (31.5-36.5); NRBC ABSOLUTE 0.15 K/mm3 (0.00-0.02); NRBC Auto 1.2 /100 WBC (0.0-0.2); Platelet Count 279 K/mm3 (150-400); RDW Coefficient Variation 25.6 % (11.7-14.2); RDW Standard Deviation 44.2 fL (35.1-46.3); Red Blood Cell Count 3.61 M/mm3 (3.80-5.20); White Blood Cell Count 12.19 K/mm3 (4.00-11.30)
[2018-11-02 04:51] LABS: EOSINOPHILS ABSOLUTE AUTO 0.32 K/mm3 (0.00-0.68); EOSINOPHILS PERCENT AUTO 3 % (0-6); IMMATURE GRAN ABSOLUTE AUTO 2.54 K/mm3 (0.00-0.10); IMMATURE GRAN PERCENT AUTO 21 % (0-1); Mean Corpuscular Volume 74 fL (80-100); NEUTROPHILS ABSOLUTE AUTO 7.08 K/mm3 (1.96-9.15); NEUTROPHILS PERCENT AUTO 58 % (41-73)
[2018-11-02 05:08] LABS: BAND PERCENT MAN 12 % (0-8); BASOPHILS ABSOLUTE MAN 0.12 K/mm3 (0.00-0.23); BASOPHILS PERCENT MAN 1 % (0-2); EOSINOPHILS ABSOLUTE MAN 0.36 K/mm3 (0.00-0.68); EOSINOPHILS PERCENT MAN 3 % (0-6); LYMPHOCYTES PERCENT MAN 5 % (21-46); METAMYELOCYTE PERCENT MAN 5 % (0-0); MONOCYTES ABSOLUTE MAN 0.36 K/mm3 (0.16-1.47); MONOCYTES PERCENT MAN 3 % (4-13); MYELOCYTE ABSOLUTE MAN 0.12 K/mm3 (0.00-0.00); MYELOCYTE PERCENT MAN 1 % (0-0); NEUTROPHILS ABSOLUTE MAN 9.99 K/mm3 (1.96-9.15); SEG NEUTROPHILS PERCENT MAN 70 % (41-73); TOTAL CELLS COUNTED 100
--- NOTE | 2018-11-02 17:23 | NUR ---
SHIFT SUMMARY NO CHANGES IN ASSESSMENT AT THIS TIME. PT POSSIBLE DC FOR TOMORROW. VSS. PT TRANSFERING WELL IN ROOM. DENIES NEEDS AT THIS TIME. PT MEDICATED FOR PAIN ONCE THIS SHIFT FOR A HEADACHE. WILL CONTINUE TO MONITOR UNTIL TURNOVER IS COMPLETE.
--- NOTE | 2018-11-03 05:19 | NUR ---
SHIFT SUMMARY: PATIENT AOX3 INDEPENENT IN THE ROOM. IND WITH OWN OSTOMY WELL. STOMAS ARE WNL. DENIED ANY PAIN OR DISCOMFORT THIS SHIFT. DRESSING TO ABDOMIN WAS CHANGED YESTERDAY AND STAYED CDI THROUGHOUT THE SHIFT. PICC LINE INFUSED WITH NO PROBLEMS, BUT WILL NOT DRAW THIS AM. FLUSHED ALL PORTS WITH 20CC OF SALINE. NO ACUTE CHANGES OCCURED THIS SHIFT. CALL LIGHT REMAINED WITH REACH AND USED APPROPRIATLY. WILL REPORT TO DAY SHIFT RN.
[2018-11-03 05:45] LABS: Hemoglobin 7.5 g/dL (11.5-16.0); IMMATURE GRAN ABSOLUTE AUTO 1.75 K/mm3 (0.00-0.10); IMMATURE GRAN PERCENT AUTO 13 % (0-1); Mean Platelet Volume 9.4 fL (9.1-12.4); NRBC ABSOLUTE 0.13 K/mm3 (0.00-0.02); Platelet Count 296 K/mm3 (150-400); White Blood Cell Count 13.13 K/mm3 (4.00-11.30)
[2018-11-03 06:04] LABS: BAND PERCENT MAN 4 % (0-8); BASOPHILS PERCENT MAN 0 % (0-2); EOSINOPHILS PERCENT MAN 2 % (0-6); LYMPHOCYTES PERCENT MAN 11 % (21-46); METAMYELOCYTE PERCENT MAN 3 % (0-0); MONOCYTES PERCENT MAN 3 % (4-13); SEG NEUTROPHILS PERCENT MAN 77 % (41-73); TOTAL CELLS COUNTED 100
[2018-11-03 06:10] LABS: Hematocrit 27.9 % (33.0-51.0); Mean Corpuscular HGB 20.2 pg (26.0-34.0); Mean Corpuscular HGB Conc 26.9 g/dL (31.5-36.5); Mean Corpuscular Volume 75 fL (80-100); Red Blood Cell Count 3.72 M/mm3 (3.80-5.20)
--- NOTE | 2018-11-03 14:04 | NUR ---
SPOKE WITH COLIN EC TEACHER AND SHE IS ARRANGING PT'S HOME HEALTH SERVICES.
[2018-11-03] MEDS ORDERED: ACET325 PO (14:25)
[2018-11-03] MEDS ORDERED: CIPRO500 MG PO (14:26)
[2018-11-03] MEDS ORDERED: FOLI1 PO (14:26)
[2018-11-03] MEDS ORDERED: METR500 PO (14:27)
[2018-11-03] MEDS ORDERED: Florastor250 MG PO (14:28)
[2018-11-03] MEDS ORDERED: ONDA4ODT MM (14:28)
[2018-11-03] MEDS ORDERED: FERSU300 PO (14:29)
[2018-11-03] MEDS ORDERED: ASCO500 PO (14:30)
--- NOTE | 2018-11-03 14:59 | NUR ---
DISCHARGE NOTE PT DISCHARGED VIA W/C POV WITH DAUGHTER HOME WITH HOME HEALTH. PICC LINE DISCONTINUED BY DELIO LOPEZ PRIOR TO DISCHARGE. PT AND FAMILY VERBALIZED UNDERSTANDING OF MAKING FOLLOW UP APPTS AND TAKING ALL MEDICATIONS PRESCRIBED. ALL PERSONAL BELONGINGS RETURNED TO PT AT TIME OF DISCHARGE. RX FAXED TO [facility] PER PT REQUEST.
== END 2018-11-03 15:29 | disposition home health service (06) | DRG 871 ==
LOC: ER 16:08 → ICUW 18:54 → PCU 10-27 11:25 → MEDS 10-29 13:45 → ENPENDDIS 11-03 12:35 → MEDS 11-03 15:29
PROVIDERS: Emergency Medicine; Hospitalist; Internal Medicine; Internal Medicine Gastroenterology; Internal Medicine Pulmonary Disease; ADMIT Internal Medicine
PROC: 02HV33Z Insertion of Infusion Device into Superior Vena Cava, Percutaneous Approach (ICD-10-PCS; principal; 2018-10-25)
PROC: 4A02X4A Measurement of Cardiac Electrical Activity, Guidance, External Approach (ICD-10-PCS; 2018-10-25)
DX: A41.9 Sepsis, unspecified organism (principal); R65.21 Severe sepsis with septic shock; E87.2 Acidosis; N17.9 Acute kidney failure, unspecified; K50.90 Crohn's disease, unspecified, without complications; D62 Acute posthemorrhagic anemia; N18.3 Chronic kidney disease, stage 3 (moderate); K52.9 Noninfective gastroenteritis and colitis, unspecified; Z93.3 Colostomy status; K43.5 Parastomal hernia without obstruction or gangrene; D50.9 Iron deficiency anemia, unspecified; D63.1 Anemia in chronic kidney disease; E89.0 Postprocedural hypothyroidism; I95.9 Hypotension, unspecified; Z87.891 Personal history of nicotine dependence
CPT/HCPCS: 0097U; 36415; 36569; 51703; 74177; 80048; 80053; 81001; 82272; 82330; 82728; 82947; 83540; 83550; 83605; 83735; 84443; 84484; 85014; 85018; 85025; 86850; 86900; 86901; 86923; 87040; 87086; 93005; 93010; 96361; 96365-59; 96366; 97110; 97116; 97161; 97530; 99285-25; A9270; A9270-GY; C1751; C9113; J0744; J0885; J2543; J2916; J3420; J7030; J7050; J7060; J7120; Q9967

== ENCOUNTER 2018-11-15 08:45 | Day surgery (SDC) | payer MEDICARE, OTHER ==
[~2018-11-15 08:45] MED LIST changes: +ACET325 PO; +ASCO500 PO; +CIPRO500 MG PO; +FERSU300 PO; +FOLI1 PO; +Florastor250 MG PO; +METR500 PO; +NAPR220 PO
== END 2018-11-15 22:58 | disposition home or self-care (01) ==
LOC: WOUND 08:45
DX: T81.31XD Disruption of external operation (surgical) wound, not elsewhere classified, subsequent encounter (principal); T81.83XD Persistent postprocedural fistula, subsequent encounter; Z87.891 Personal history of nicotine dependence
CPT/HCPCS: G0463

== ENCOUNTER 2019-01-14 17:57 | Emergency (ER) | payer MEDICARE, OTHER ==
[~2019-01-14] VITALS: Ht 157.5 cm; Wt 70.3 kg
== END 2019-01-14 20:40 | disposition home or self-care (01) ==
LOC: ER 17:57
DX: S01.81XA Laceration without foreign body of other part of head, initial encounter (principal); S70.01XA Contusion of right hip, initial encounter; Z23 Encounter for immunization; Z79.899 Other long term (current) drug therapy; Z87.891 Personal history of nicotine dependence; W18.30XA Fall on same level, unspecified, initial encounter
CPT/HCPCS: 12011; 70450; 72125; 73502; 90471; 90714; 99284-25; A9270-GY

== ENCOUNTER 2019-09-01 10:56 | Day surgery (SDC) | payer MEDICARE, OTHER ==
[~2019-09-01] VITALS: Ht 157.5 cm; Wt 79.7 kg
[~2019-09-01 10:56] MED LIST changes: +ESOM20
--- NOTE | 2019-09-01 13:02 | NUR ---
09/01/19 1302 Kaelyn Chase IV INFILTRATED DURING PROCEDURE. MARKED SWELLING NOTED ON R HAND. WRAPPED WITH COBAN AND PLACED HEAT GALINA. NEW IV NOT STARTED PROCEDURE ALMOST COMPLETE. PT REMAINED SLEEPING THROUGH END OF PROCEDURE. PT VERBALIZES 2/10 PAIN IN R HAND UPON WAKING. INSTRUCTED PT TO KEEP WARM COMPRESSES ON HAND UNTIL SWELLING SUBSIDES
== END 2019-09-01 12:56 | disposition home or self-care (01) ==
LOC: ORSCSDS 10:56
PROVIDERS: Student in an Organized Health Care Education/Training Program
PROC: 0DBE8ZX Excision of Large Intestine, Via Natural or Artificial Opening Endoscopic, Diagnostic (ICD-10-PCS; principal; 2019-09-01 12:00)
DX: K50.90 Crohn's disease, unspecified, without complications (principal); E03.9 Hypothyroidism, unspecified; I10 Essential (primary) hypertension; E78.5 Hyperlipidemia, unspecified; K21.9 Gastro-esophageal reflux disease without esophagitis; Z79.899 Other long term (current) drug therapy; Z86.73 Personal history of transient ischemic attack (TIA), and cerebral infarction without residual deficits
CPT/HCPCS: 88305; J2704; J7120

== ENCOUNTER → 2020-09-25 | Outpatient (CLI) | payer OTHER ==
[2020-09-25 09:31] LABS: Source, Urine Clean Catch
[2020-09-25 12:28] LABS: Appearance, Urine Cloudy (Clear); Bilirubin, Urine Neg (Neg); Blood, Urine 5+ (Neg); Color, Urine Yellow (P-Yellow); Glucose Qualitative, Urine Neg (Neg); Ketones, Urine Neg (Neg); Leukocyte Esterase, Urine 3+ (Neg); Nitrite, Urine Neg (Neg); Protein, Urine 3+ (Neg); Urobilinogen, Urine NORM (Normal)
[2020-09-25 13:07] LABS: Bacteria Few /hpf; Red Blood Cells, Urine 0-2 /hpf (0-2); Squamous Epithelial Cells Rare /hpf (Few); White Blood Cells, Urine TNTC /hpf (0-5)
== END | disposition home or self-care (01) ==
LOC: LAB SHORT 08:07
PROVIDERS: Student in an Organized Health Care Education/Training Program
DX: R31.29 Other microscopic hematuria (principal)
CPT/HCPCS: 81001; 87077; 87086; 87186

== ENCOUNTER → 2021-06-26 | Outpatient (CLI) | payer OTHER | END | disposition home or self-care (01) | LOC: LAB 09:55 → LAB SHORT 09:55 | DX: R35.89 Other polyuria (principal) | CPT/HCPCS: 87077; 87086; 87186 ==

== ENCOUNTER 2022-02-20 16:36 | Observation (INO) | payer OTHER ==
[~2022-02-20] VITALS: Ht 154.9 cm; Wt 80.1 kg
[2022-02-20 17:26] LABS: BASOPHILS ABSOLUTE AUTO 0.11 K/mm3 (0.00-0.23); BASOPHILS PERCENT AUTO 0 % (0-2); EOSINOPHILS ABSOLUTE AUTO 0.05 K/mm3 (0.00-0.68); EOSINOPHILS PERCENT AUTO 0 % (0-6); Hematocrit 38.2 % (33.0-51.0); IMMATURE GRAN ABSOLUTE AUTO 0.19 K/mm3 (0.00-0.10); IMMATURE GRAN PERCENT AUTO 1 % (0-1); LYMPHOCYTES ABSOLUTE AUTO 1.37 K/mm3 (0.84-5.20); LYMPHOCYTES PERCENT AUTO 4 % (21-46); MONOCYTES ABSOLUTE AUTO 2.59 K/mm3 (0.16-1.47); MONOCYTES PERCENT AUTO 8 % (4-13); Mean Corpuscular HGB 26.1 pg (26.0-34.0); Mean Corpuscular HGB Conc 31.4 g/dL (31.5-36.5); Mean Corpuscular Volume 83 fL (80-100); NEUTROPHILS ABSOLUTE AUTO 26.92 K/mm3 (1.96-9.15); NEUTROPHILS PERCENT AUTO 86 % (41-73); Platelet Count 230 K/mm3 (150-400); RDW Coefficient Variation 18.2 % (11.7-14.2); RDW Standard Deviation 55.1 fL (35.1-46.3); White Blood Cell Count 31.23 K/mm3 (4.00-11.30)
[2022-02-20 17:48] LABS: Albumin, Blood 3.3 g/dL (3.4-5.0); Albumin/Globulin Ratio 0.8 (0.8-1.8); Bilirubin, Total 0.7 mg/dL (0.1-1.0); Bun/Creatinine Ratio 18.6 (12.0-20.0); Calcium, Blood 9.9 mg/dL (8.5-10.1); Creatinine, Blood 1.67 mg/dL (0.40-1.00); Globulin, Blood 3.9 g/dL (2.2-4.0); Potassium, Blood 4.7 mmol/L (3.5-5.5); Total Protein, Blood 7.2 g/dL (6.4-8.2)
[2022-02-20 22:03] LABS: Influenza A, PCR NEGATIVE (NEGATIVE); Influenza B, PCR NEGATIVE (NEGATIVE); Resp Syncytial Virus, PCR NEGATIVE (NEGATIVE); SARS-Cov-2 (COVID-19) PCR, MMC NEGATIVE (NEGATIVE)
--- NOTE | 2022-02-21 01:21 | NUR ---
0035 PT ARRIVED TO FLOOR. ASSESSMENT COMPLETE, ADMISSION COMPLETE. SKIN ASSESSMENT DONE. GROIN IS RED/EXORIATED. COCCYX PINK INTACT, BLANCHABLE. DENIES ANY CURRENT ABDOMINAL PAIN, STATES FENTANYL GIVEN EARLIER HELPED. DENIES N/V. COLOSTOMY INTACT WITH MODERATE LIQUID BROWN STOOL. NO BLOOD SEEN. PT NPO, IV FLUIDS STARTED. PT AWARE OF DIET. DENIES ANY CURRENT S/S OF DISTRESS. PT ABLE TO AMBULATE SBA WITH FWW. EDUCATED ON PLAN OF CARE. CALL LIGHT IN REACH, ABLE TO MAKE NEEDS KNOWN.
--- NOTE | 2022-02-21 03:52 | NUR ---
SHIFT SUMMARY NO CHNAGES IN PT CONDITION SINCE ADMISSION. STILL DENIES ABDOMINAL PAIN. AMBULATED SBA TO BATHROOM, MANAGED COLOSTOMY SELF. NO BLOOD NOTED. IV ABX AND FLUIDS CONTINUE. CALL LIGHT IN REACH, ABLE TO MAKE NEEDS KNOWN.
[2022-02-21 04:40] LABS: BASOPHILS ABSOLUTE AUTO 0.09 K/mm3 (0.00-0.23); BASOPHILS PERCENT AUTO 1 % (0-2); EOSINOPHILS ABSOLUTE AUTO 0.15 K/mm3 (0.00-0.68); EOSINOPHILS PERCENT AUTO 1 % (0-6); Hematocrit 33.3 % (33.0-51.0); Hemoglobin 9.9 g/dL (11.5-16.0); IMMATURE GRAN PERCENT AUTO 1 % (0-1); LYMPHOCYTES ABSOLUTE AUTO 1.27 K/mm3 (0.84-5.20); LYMPHOCYTES PERCENT AUTO 7 % (21-46); MONOCYTES ABSOLUTE AUTO 1.85 K/mm3 (0.16-1.47); MONOCYTES PERCENT AUTO 10 % (4-13); Mean Corpuscular HGB 25.8 pg (26.0-34.0); Mean Corpuscular HGB Conc 29.7 g/dL (31.5-36.5); Mean Corpuscular Volume 87 fL (80-100); Mean Platelet Volume 10.3 fL (9.1-12.4); NEUTROPHILS ABSOLUTE AUTO 16.03 K/mm3 (1.96-9.15); NEUTROPHILS PERCENT AUTO 82 % (41-73); Platelet Count 184 K/mm3 (150-400); RDW Coefficient Variation 18.5 % (11.7-14.2); RDW Standard Deviation 58.2 fL (35.1-46.3); Red Blood Cell Count 3.84 M/mm3 (3.80-5.20); White Blood Cell Count 19.49 K/mm3 (4.00-11.30)
[2022-02-21 04:57] LABS: Bun/Creatinine Ratio 20.9 (12.0-20.0); Calcium, Blood 8.6 mg/dL (8.5-10.1); Creatinine, Blood 1.53 mg/dL (0.40-1.00); Potassium, Blood 4.3 mmol/L (3.5-5.5)
[2022-02-21 08:06] LABS: Adenovirus F 40/41 Not Detected (NOT DETECT); Astrovirus Not Detected (NOT DETECT); Campylobacter Sp Not Detected (NOT DETECT); Cryptosporidium Not Detected (NOT DETECT); Cyclospora Cayetanensis Not Detected (NOT DETECT); E. Coli O157 Not Detected (NOT DETECT); Entamoeba Histolytica Not Detected (NOT DETECT); Enteroaggregative E. coli-EAEC Not Detected (NOT DETECT); Enteropathogenic E. coli-EPEC Not Detected (NOT DETECT); Enterotoxigenic E. coli-ETEC Not Detected (NOT DETECT); Giardia Lamblia Not Detected (NOT DETECT); Norovirus GI/GII Detected (NOT DETECT); Plesiomonas Shigelloides Not Detected (NOT DETECT); Rotavirus A Not Detected (NOT DETECT); Salmonella Sp Not Detected (NOT DETECT); Sapovirus Not Detected (NOT DETECT); Shiga Toxin-prod E. coli-STEC Not Detected (NOT DETECT); Shigella/Enteroin E. coli-EIEC Not Detected (NOT DETECT); Vibrio Cholerae Not Detected (NOT DETECT); Vibrio Sp Not Detected (NOT DETECT); Yersinia Enterocolitica Not Detected (NOT DETECT)
[2022-02-21 11:10] LABS: Percent Saturation 4.3 % (15.0-50.0)
[2022-02-21 12:07] LABS: Hematocrit 35.4 % (33.0-51.0)
--- NOTE | 2022-02-21 16:52 | NUR ---
SHIFT SUMMARY: PATIENT A&OX4. PLEASANT AND COOPERATIVE c CARE. PATIENT ON CONTACT ISOLATION FOR [place] POSITIVE. PATIENT TOLERATED WELL c FL DIET. DENIES N/V. RECEIVED IV ANTIBIOTICS THIS SHIFT. CHRONIC COLOSTOMY TO [facility] AND HAS BEEN PRODUCING LIQUID BROWN STOOL c NO SIGN OF BLOOD TO STOOL. COLOSTOMY APPLIANCE WAS CHANGED THIS PM. PATIENT HAS BEEN AMBULATING IN ROOM INDEPENDENTLY. VITAL SIGNS REVIEWED. TELE WAS DC'D THIS AM PER ORDER. IV TO R AC SALINE LOCKED. CALL LIGHT IN REACH.
--- NOTE | 2022-02-22 03:35 | NUR ---
SHIFT SUMMARY BP ELEVATED OVERNIGHT. PER PT, DOESNT TAKE ANY BP MEDICATIONS AND BP IS ALWAYS GOOD. PAGED PRIMARY CARE PHYSICIAN, NEW ORDER FOR PRN HYDRALYZINE FOR SBP >160. PT RECIEVING IV ABX/STERIODS. ON CONTACT PRECAUTIONS FOR [place]OVIR[place]. COLOSTOMY IN PLACE, GOOD LIQUID OUTPUT. AMBULATING SBA/INDEPENDENT IN ROOM. PT ON FULL LIQUID DIET, TOLERATING WELL. NO ABDOMINAL PAIN. PT ORIENTED X4, ABLE TO MAKE NEEDS KNOWN. CALL LIGHT IN REACH.
[2022-02-22] MEDS ORDERED: FERSU300 PO (11:53)
[2022-02-22] MEDS ORDERED: VISBIOME 112.51 EACH PO (11:53)
[2022-02-22] MEDS ORDERED: SENN187 PO (11:53)
[2022-02-22] MEDS ORDERED: ORTIKOS6 M1 PO (11:54)
[2022-02-22] MEDS ORDERED: AMOCLA500 PO (11:54)
== END 2022-02-22 12:36 | disposition home or self-care (01) ==
LOC: ER 16:36 → MEDS 16:37
PROVIDERS: Internal Medicine; Physician Assistant; Student in an Organized Health Care Education/Training Program; ADMIT Family Medicine
DX: K52.9 Noninfective gastroenteritis and colitis, unspecified (principal); K50.90 Crohn's disease, unspecified, without complications; E86.0 Dehydration; N18.30 Chronic kidney disease, stage 3 unspecified; E03.9 Hypothyroidism, unspecified; E78.5 Hyperlipidemia, unspecified; D50.9 Iron deficiency anemia, unspecified; Z20.822 Contact with and (suspected) exposure to COVID-19; N17.9 Acute kidney failure, unspecified
CPT/HCPCS: 0241U; 36415; 74177; 80048; 80053; 82272; 82728; 83540; 83550; 83605; 83690; 85014; 85018; 85025; 87040; 87507; 93971; 96361; 96366; 96367; 96374; 96375; 96376; 99285-25; A9270; C9113; G0378; J0360; J2543; J2916; J2930; J3010; J7030; J7120; Q9967

== ENCOUNTER → 2022-07-03 | Outpatient (CLI) | payer OTHER ==
[~2022-07-03] MED LIST changes: +AMOCLA500 PO; +ORTIKOS6 M1 PO; +SENN187 PO; +VISBIOME 112.51 EACH PO
== END ==
LOC: LAB 09:20 → LAB SHORT 09:20
DX: N30.00 Acute cystitis without hematuria (principal)
CPT/HCPCS: 87077; 87086; 87186

== ENCOUNTER → 2024-09-08 | Outpatient (CLI) | payer OTHER ==
[2024-09-08 13:27] LABS: Source, Urine Clean Catch
[2024-09-08 14:30] LABS: Bilirubin, Urine Neg (Neg); Color, Urine Yellow (P-Yellow); Glucose Qualitative, Urine Neg (Neg); Ketones, Urine Neg (Neg); Leukocyte Esterase, Urine 3+ (Neg); Protein, Urine 2+ (Neg); Specific Gravity, Urine 1.010 (1.003-1.022); Urobilinogen, Urine NORM (Normal)
[2024-09-08 14:52] LABS: White Blood Cells, Urine TNTC /hpf (0-5)
== END ==
LOC: LAB SHORT 13:26 → LAB 13:26
PROVIDERS: Student in an Organized Health Care Education/Training Program
DX: R30.0 Dysuria (principal)
CPT/HCPCS: 81001; 87077; 87086; 87186

== ENCOUNTER → 2024-09-18 | Outpatient (CLI) | payer OTHER ==
[~2024-09-18] MED LIST changes: +OXAYDO5 M1 PO
== END ==
LOC: LAB 10:59 → LAB SHORT 10:59
DX: N39.0 Urinary tract infection, site not specified (principal)
CPT/HCPCS: 87077; 87086; 87186

== ENCOUNTER 2024-09-22 05:58 | Emergency (ER) | payer MEDICARE, OTHER ==
[~2024-09-22] VITALS: Ht 154.9 cm; Wt 58.1 kg
[~2024-09-22 05:58] MED LIST changes: -OXAYDO5 M1 PO
[2024-09-22 07:30] VITALS: BP 131/62
[2024-09-22] MEDS ORDERED: OXAYDO5 M1 PO (08:05)
== END 2024-09-22 08:25 | disposition home or self-care (01) ==
LOC: ER 05:58
DX: S92.352A Displaced fracture of fifth metatarsal bone, left foot, initial encounter for closed fracture (principal); S82.62XA Displaced fracture of lateral malleolus of left fibula, initial encounter for closed fracture; E03.9 Hypothyroidism, unspecified; E78.5 Hyperlipidemia, unspecified; N18.30 Chronic kidney disease, stage 3 unspecified; Z87.891 Personal history of nicotine dependence; Z79.890 Hormone replacement therapy; Z79.899 Other long term (current) drug therapy; W01.0XXA Fall on same level from slipping, tripping and stumbling without subsequent striking against object, initial encounter
CPT/HCPCS: 29515; 70450; 72125; 73600; 73630; 99284-25; A9270

== ENCOUNTER 2024-09-28 04:01 | Inpatient (IN) | payer OTHER ==
[~2024-09-28] VITALS: Ht 157.5 cm; Wt 56.7 kg
[~2024-09-28 04:01] MED LIST changes: +EUTHYROX125 MCG PO; +OXAYDO5 M1 PO
[2024-09-28] MEDS ORDERED: NS 1,000 ML IV SCH (04:15)
[2024-09-28] MEDS ORDERED: Ondansetron HCl 2 MG / ML 2ML Vial IV ONE (04:15)
[2024-09-28 04:42] LABS: Hematocrit 30.9 % (33.0-51.0); Hemoglobin 10.0 g/dL (11.5-16.0); Mean Corpuscular HGB Conc 32.4 g/dL (31.5-36.5); Mean Corpuscular Volume 88 fL (80-100); NRBC ABSOLUTE 0.03 K/mm3 (0.00-0.02); NRBC Auto 0.4 /100 WBC (0.0-0.2); Platelet Count 251 K/mm3 (150-400); RDW Coefficient Variation 22.5 % (11.7-14.2); RDW Standard Deviation 71.2 fL (35.1-46.3)
[2024-09-28 05:00] LABS: Alanine Aminotransfer (ALT/SGP 56.0 U/L (12-78); Albumin, Blood 2.0 g/dL (3.4-5.0); Albumin/Globulin Ratio 0.5 (0.8-1.8); Anion Gap 10.0 mmol/L (3-11); Aspartate Aminotrans (AST/SGOT 113.0 U/L (12-37); Bilirubin, Total 1.0 mg/dL (0.1-1.0); Blood Urea Nitrogen 32.0 mg/dL (8-24); CO2, Blood 27.0 mmol/L (21-32); Calcium, Blood 9.7 mg/dL (8.5-10.1); Chloride, Blood 103.0 mmol/L (98-108); Creatinine, Blood 0.98 mg/dL (0.40-1.00); Globulin, Blood 4.2 g/dL (2.2-4.0); Glucose, Blood 103.0 mg/dL (70-99); Magnesium, Blood 1.5 mg/dL (1.6-2.4); Potassium, Blood 2.7 mmol/L (3.5-5.5); Sodium, Blood 137.0 mmol/L (136-145); Total Protein, Blood 6.2 g/dL (6.4-8.2)
[2024-09-28 05:07] LABS: BAND PERCENT MAN 8 % (0-8); BASOPHILS ABSOLUTE MAN 0.08 K/mm3 (0.00-0.23); BASOPHILS PERCENT MAN 1 % (0-2); EOSINOPHILS ABSOLUTE MAN 0.00 K/mm3 (0.00-0.68); EOSINOPHILS PERCENT MAN 0 % (0-6); LYMPHOCYTES ABSOLUTE MAN 0.16 K/mm3 (0.84-5.20); LYMPHOCYTES PERCENT MAN 2 % (21-46); METAMYELOCYTE ABSOLUTE MAN 0.08 K/mm3 (0.00-0.00); METAMYELOCYTE PERCENT MAN 1 % (0-0); MONOCYTES ABSOLUTE MAN 1.06 K/mm3 (0.16-1.47); MONOCYTES PERCENT MAN 13 % (4-13); MYELOCYTE ABSOLUTE MAN 0.08 K/mm3 (0.00-0.00); MYELOCYTE PERCENT MAN 1 % (0-0); NEUTROPHILS ABSOLUTE MAN 6.69 K/mm3 (1.96-9.15); SEG NEUTROPHILS PERCENT MAN 74 % (41-73)
[2024-09-28 05:21] LABS: Influenza A, PCR NEGATIVE (NEGATIVE); Influenza B, PCR NEGATIVE (NEGATIVE); Resp Syncytial Virus, PCR NEGATIVE (NEGATIVE); SARS-Cov-2 (COVID-19) PCR, MMC NEGATIVE (NEGATIVE)
[2024-09-28] MEDS ORDERED: Doxycycline Hyclate 100 MG in Dextrose 5% 250 ML IV ONE (05:45)
[2024-09-28] MEDS ORDERED: CefTRIAXone Sodium 1,000 MG in NS 100 ML IV ONE (05:45)
[2024-09-28] MEDS ORDERED: Ondansetron HCl 2 MG / ML 2ML Vial IV PRN (06:10)
[2024-09-28] MEDS ORDERED: Ipratropium/Albuterol SulF 2.5-0.5MG/3 ML Amp INH PRN (06:15)
[2024-09-28] MEDS ORDERED: Magnesium Sulf 2 GM/Water 50ML 50 ML IV STA (07:00)
[2024-09-28] MEDS ORDERED: Doxycycline Hyclate 100 MG in Dextrose 5% 250 ML IV SCH (09:00)
[2024-09-28] MEDS ORDERED: Enoxaparin 40 MG/0.4 ML SYR SC SCH (09:00)
[2024-09-28] MEDS ORDERED: Lactobacil 2-S.Thermo-Bifido 1 1 Cap PO SCH (09:00)
[2024-09-28] MEDS ORDERED: NS 250 ML IV PRN (09:30)
[2024-09-28 09:32] VITALS: BP 133/59
[2024-09-28 09:45] LABS: Source, Urine Clean Catch
[2024-09-28 09:51] LABS: Bilirubin, Urine Neg (Neg); Color, Urine Yellow (P-Yellow); Glucose Qualitative, Urine Neg (Neg); Ketones, Urine Neg (Neg); Leukocyte Esterase, Urine 2+ (Neg); Protein, Urine 1+ (Neg); Specific Gravity, Urine 1.005 (1.003-1.022); Urobilinogen, Urine NORM (Normal)
--- NOTE | 2024-09-28 09:56 | NUR ---
ADMIT PT REPORT RECEIVED FROM ER. PT ARRIVED VIA GURNEY AWAKE AND ALERT. 2 TRANSFER TO BSC TO VOID. U/A SENT PER IORDER. RETURNED TO BED. POWER GLIDE BEING PLACED. CARE ONGOING.
[2024-09-28 09:57] LABS: White Blood Cells, Urine 25-50 /hpf (0-5)
[2024-09-28 09:58] LABS: Yeast/Fungi Urine Mod /hpf
[2024-09-28] MEDS ORDERED: Polyethylene Glycol 3350 17 gm PO PRN (14:50)
--- NOTE | 2024-09-28 14:58 | NUR ---
Spiritual Care Visit. Pt. is awake and welcomes my visit. Pt. and daughter at bedside verbalize that the Pt. is an active member of the [employer] and requested a visit from the [facility]. Facilitated a short life review and the Pt. is very pleasant. Pt. and daughter verbalized gratitude for the spiritual care visit. This sewage screen operator contacted the [facility] by phone and left a voice mail message.
[2024-09-28 16:13] VITALS: BP 109/47
--- NOTE | 2024-09-28 18:05 | NUR ---
SHIFT SUMMARY: PT RESTING IN BED. POTASSIUM AND MAGNESSIUM GIVEN IV THIS SHIFT. PT Q2 TURNED AND REPOSITIONED. NO ACUTE CHANGES.
[2024-09-28 21:04] VITALS: BP 133/54
--- NOTE | 2024-09-29 05:31 | NUR ---
SUMMERY NOC SHIFT PT ADMITTED FOR ACUTE HYPOXIC RESPIRATORY FAILURE. PT IS ON 2L SUPPLEMENTAL O2 VIA NASAL CANNULA. PT HAS 20GA LISA POWER GLIDE. PT IS ABLE TO USE BEDSIDE COMMODE WITH ONE ASSIST. THERE IS ORDER FOR STRAINING URINE. CT SHOWS KIDNEY STONES RIGHT SIDE. APPEARS SOME MAY HAVE PASSED THIS EVENING. PT HAS COLOSTOMY BAG. 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 PT LIVES ALONE AND DAUGHTER VISITS OFTEN.BED IS IN LOW POSITION, RAILS TIMES TWO, AND CALL LIGHT IS WITHIN REACH.
[2024-09-29 05:45] LABS: BASOPHILS ABSOLUTE AUTO 0.05 K/mm3 (0.00-0.23); BASOPHILS PERCENT AUTO 1 % (0-2); EOSINOPHILS ABSOLUTE AUTO 0.20 K/mm3 (0.00-0.68); EOSINOPHILS PERCENT AUTO 3 % (0-6); Hematocrit 25.8 % (33.0-51.0); Hemoglobin 8.3 g/dL (11.5-16.0); IMMATURE GRAN ABSOLUTE AUTO 0.12 K/mm3 (0.00-0.10); IMMATURE GRAN PERCENT AUTO 2 % (0-1); LYMPHOCYTES ABSOLUTE AUTO 0.49 K/mm3 (0.84-5.20); LYMPHOCYTES PERCENT AUTO 7 % (21-46); MONOCYTES ABSOLUTE AUTO 0.95 K/mm3 (0.16-1.47); MONOCYTES PERCENT AUTO 14 % (4-13); Mean Corpuscular HGB Conc 32.2 g/dL (31.5-36.5); Mean Corpuscular Volume 89 fL (80-100); NEUTROPHILS ABSOLUTE AUTO 4.87 K/mm3 (1.96-9.15); NEUTROPHILS PERCENT AUTO 73 % (41-73); NRBC ABSOLUTE 0.00 K/mm3 (0.00-0.02); NRBC Auto 0.0 /100 WBC (0.0-0.2); Platelet Count 200 K/mm3 (150-400); RDW Coefficient Variation 23.0 % (11.7-14.2); RDW Standard Deviation 73.8 fL (35.1-46.3)
[2024-09-29 06:04] LABS: Alanine Aminotransfer (ALT/SGP 48.0 U/L (12-78); Albumin, Blood 1.6 g/dL (3.4-5.0); Albumin/Globulin Ratio 0.5 (0.8-1.8); Anion Gap 7.0 mmol/L (3-11); Aspartate Aminotrans (AST/SGOT 76.0 U/L (12-37); Bilirubin, Total 0.5 mg/dL (0.1-1.0); Blood Urea Nitrogen 24.0 mg/dL (8-24); CO2, Blood 26.0 mmol/L (21-32); Calcium, Blood 8.8 mg/dL (8.5-10.1); Chloride, Blood 107.0 mmol/L (98-108); Creatinine, Blood 0.83 mg/dL (0.40-1.00); Globulin, Blood 3.4 g/dL (2.2-4.0); Glucose, Blood 96.0 mg/dL (70-99); Magnesium, Blood 2.0 mg/dL (1.6-2.4); Potassium, Blood 3.8 mmol/L (3.5-5.5); Sodium, Blood 136.0 mmol/L (136-145); Total Protein, Blood 5.0 g/dL (6.4-8.2)
[2024-09-29 08:52] VITALS: BP 146/58
[2024-09-29] MEDS ORDERED: CefTRIAXone Sodium 1,000 MG in NS 100 ML IV SCH (09:00)
[2024-09-29 18:03] VITALS: BP 135/61
[2024-09-29 19:13] VITALS: BP 122/74
--- NOTE | 2024-09-29 19:15 | NUR ---
SUMMARY PT WEANED DOWN TO ROOM AIR. PT EVAL COMPLETED. PARTIAL WEIGHT BEARING STATUS TO LEFT HEEL WITH BOOT. PRN OXY GIVEN X1 THIS SHIFT. PT UP TO CHAIR FOR DINNER.
[2024-09-30 04:09] VITALS: BP 123/60
[2024-09-30 05:07] LABS: BASOPHILS ABSOLUTE AUTO 0.03 K/mm3 (0.00-0.23); BASOPHILS PERCENT AUTO 0 % (0-2); EOSINOPHILS ABSOLUTE AUTO 0.19 K/mm3 (0.00-0.68); EOSINOPHILS PERCENT AUTO 3 % (0-6); Hematocrit 28.6 % (33.0-51.0); Hemoglobin 9.1 g/dL (11.5-16.0); IMMATURE GRAN ABSOLUTE AUTO 0.13 K/mm3 (0.00-0.10); IMMATURE GRAN PERCENT AUTO 2 % (0-1); LYMPHOCYTES ABSOLUTE AUTO 0.71 K/mm3 (0.84-5.20); LYMPHOCYTES PERCENT AUTO 10 % (21-46); MONOCYTES ABSOLUTE AUTO 0.94 K/mm3 (0.16-1.47); MONOCYTES PERCENT AUTO 13 % (4-13); Mean Corpuscular HGB Conc 31.8 g/dL (31.5-36.5); Mean Corpuscular Volume 91 fL (80-100); NEUTROPHILS ABSOLUTE AUTO 5.27 K/mm3 (1.96-9.15); NEUTROPHILS PERCENT AUTO 73 % (41-73); NRBC ABSOLUTE 0.00 K/mm3 (0.00-0.02); NRBC Auto 0.0 /100 WBC (0.0-0.2); Platelet Count 189 K/mm3 (150-400); RDW Coefficient Variation 23.5 % (11.7-14.2); RDW Standard Deviation 76.8 fL (35.1-46.3)
[2024-09-30 05:29] LABS: Anion Gap 7.0 mmol/L (3-11); Blood Urea Nitrogen 21.0 mg/dL (8-24); CO2, Blood 24.0 mmol/L (21-32); Calcium, Blood 8.8 mg/dL (8.5-10.1); Chloride, Blood 105.0 mmol/L (98-108); Creatinine, Blood 0.83 mg/dL (0.40-1.00); Glucose, Blood 104.0 mg/dL (70-99); Potassium, Blood 4.3 mmol/L (3.5-5.5); Sodium, Blood 132.0 mmol/L (136-145)
--- NOTE | 2024-09-30 06:17 | NUR ---
SUMMERY NOC SHIFT PT ADMITTED FOR ACUTE HYPOXIC RESPIRATORY FAILURE. PT HAS 20GA LISA POWER GLIDE THAT DOES DRAW. PT IS ISOLATION FOR MRSA/ URINE. PT IS ABLE TO USE BEDSIDE COMMODE WITH ONE ASSIST. THERE IS ORDER FOR STRAINING URINE. CT SHOWS KIDNEY STONES RIGHT SIDE. APPEARS ONE HAS PASSED THIS EVENING. PT HAS COLOSTOMY BAG. IMMAGING SHOWS NO BLOCKAGE. 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 PT LIVES ALONE AND DAUGHTER VISITS OFTEN AND IS HEALTHCARE PROXY. BED IS IN LOW POSITION, RAILS TIMES TWO, AND CALL LIGHT IS WITHIN REACH.
[2024-09-30 07:15] VITALS: BP 140/61
--- NOTE | 2024-09-30 13:06 | NUR ---
PT REPORTS SUDDEN ONSET NAUSEA WITH RETCHING. ZOFRAN GIVEN.. PT DECLINES LUNCH
[2024-09-30 16:01] VITALS: BP 136/58
--- NOTE | 2024-09-30 17:40 | NUR ---
NO ACUET CHANGES, PATIENT HAS INTENSE 10/10 PAIN WITH TRANSFERS AND VOIDING. TIO VISITED THROUGH OUT THE DAYH, PATIENT WORKED WITH PT, MEDICATED FOR PAIN, PLEASANT TO CARE, CALL LIGHT WITH IN REACH
[2024-09-30 19:41] VITALS: BP 133/58
--- NOTE | 2024-10-01 04:17 | NUR ---
PATIENT ALERT AND ORIENTED DURING SHIFT. PATIENT HAS COLOSTOMY. PATIENT UP TO BSC WITH 1 ASSIST AND WALKER. PATIENT MEDICATED FOR PAIN- SEE EMAR. BOOT ON L LEG. BED IN LOW POSITION WITH WHEELS LOCKED. CALL LIGHT WITHIN REACH.
[2024-10-01 04:54] VITALS: BP 127/62
[2024-10-01 07:17] VITALS: BP 125/58
--- NOTE | 2024-10-01 10:22 | NUR ---
PATIENT WORKING WITH PT IN ROOM NOW, DAUGHTER AT BEDSIDE, CALL LIGHT WITH IN REACH
[2024-10-01 15:15] VITALS: BP 122/53
--- NOTE | 2024-10-01 17:53 | NUR ---
NO ACUTE CHANGES, COLOSTOMY APPLIANCE CHANGED X2 WITH PATIENT DIRECTIONS FOR CHANGING. PATIENT MORE ACTIVE TODAY, DAUGHTER VISITED, CALL LIGHT WITH IN REACH
[2024-10-01 20:11] VITALS: BP 142/59
--- NOTE | 2024-10-02 04:21 | NUR ---
PATIENT ALERT AND ORIENTED DURING SHIFT. UP TO BSC WITH 1 ASSIST ADN WALKER. BOOT ON L LEG. OXYCODONE GIVEN FOR PAIN. NO ACUTE CHANGES DURING SHIFT. BED IN LOW POSITION WITH WHEELS LOCKED. CALL LIGHT WITHIN REACH
[2024-10-02 05:25] VITALS: BP 140/60
[2024-10-02 07:17] VITALS: BP 128/61
--- NOTE | 2024-10-02 12:48 | NUR ---
ECHO BEING DONE IN ROOM NOW
[2024-10-02] MEDS ORDERED: ACET325 PO (13:45)
[2024-10-02] MEDS ORDERED: AMOCLA875 PO (13:46)
[2024-10-02] MEDS ORDERED: ALBU8HFA2 INH (13:46)
[2024-10-02] MEDS ORDERED: DOXY100 PO (13:47)
[2024-10-02] MEDS ORDERED: MIRALAX17 GM PO (13:49)
[2024-10-02] MEDS ORDERED: Senna-Extra17.2 MG PO (13:50)
--- NOTE | 2024-10-02 16:02 | NUR ---
PATIENT TRANSFERRED VIA STRETCHER TO [facility], THIS RN TRIED TO CALL AND GIVE REPORT, LEFT MESSAGE ON ANSWERING SERVICE, REPORTED TO DIRECTOR FURNITURE
== END 2024-10-02 15:40 | DRG 177 ==
LOC: ER 04:01 → MEDS 04:02
PROVIDERS: Emergency Medicine; Internal Medicine; ADMIT Student in an Organized Health Care Education/Training Program
DX: J15.69 Pneumonia due to other Gram-negative bacteria (principal); J96.01 Acute respiratory failure with hypoxia; K50.90 Crohn's disease, unspecified, without complications; N13.2 Hydronephrosis with renal and ureteral calculous obstruction; E78.5 Hyperlipidemia, unspecified; N18.30 Chronic kidney disease, stage 3 unspecified; E87.6 Hypokalemia; E83.42 Hypomagnesemia; R29.6 Repeated falls; Z66 Do not resuscitate; D63.1 Anemia in chronic kidney disease; E89.0 Postprocedural hypothyroidism; Z87.440 Personal history of urinary (tract) infections; S92.301A Fracture of unspecified metatarsal bone(s), right foot, initial encounter for closed fracture; E83.51 Hypocalcemia; Z79.51 Long term (current) use of inhaled steroids; Z79.891 Long term (current) use of opiate analgesic; Z79.890 Hormone replacement therapy; Z79.899 Other long term (current) drug therapy; Z90.710 Acquired absence of both cervix and uterus; Z90.49 Acquired absence of other specified parts of digestive tract; Z98.890 Other specified postprocedural states; Z87.891 Personal history of nicotine dependence; W18.30XA Fall on same level, unspecified, initial encounter
CPT/HCPCS: 36415; 71045; 74018; 74177; 80048; 80053; 81001; 82330; 83690; 83735; 83880; 84132; 84145; 85025; 87637; 93005; 93010; 93306; 94760; 96365; 96366; 96367; 96368; 96372; 96375; 96376; 97110; 97161; 97530; 99285-25; A9270; C1751; G0378; J0696; J1650; J2405; J3475; J3480; J7030; J7050; J7060; Q9967

== ENCOUNTER 2024-11-30 08:47 | Emergency (ER) | payer OTHER ==
[~2024-11-30] VITALS: Ht 154.9 cm; Wt 49.0 kg
[~2024-11-30 08:47] MED LIST changes: +ALBU8HFA2 INH; +AMOCLA875 PO; +DOXY100 PO; +MIRALAX17 GM PO; +Senna-Extra17.2 MG PO
[2024-11-30 10:22] LABS: BASOPHILS ABSOLUTE AUTO 0.05 K/mm3 (0.00-0.23); BASOPHILS PERCENT AUTO 0 % (0-2); EOSINOPHILS ABSOLUTE AUTO 0.01 K/mm3 (0.00-0.68); EOSINOPHILS PERCENT AUTO 0 % (0-6); Hematocrit 32.1 % (33.0-51.0); Hemoglobin 10.8 g/dL (11.5-16.0); IMMATURE GRAN ABSOLUTE AUTO 0.06 K/mm3 (0.00-0.10); IMMATURE GRAN PERCENT AUTO 1 % (0-1); LYMPHOCYTES ABSOLUTE AUTO 0.72 K/mm3 (0.84-5.20); LYMPHOCYTES PERCENT AUTO 6 % (21-46); MONOCYTES ABSOLUTE AUTO 0.88 K/mm3 (0.16-1.47); MONOCYTES PERCENT AUTO 7 % (4-13); Mean Corpuscular HGB Conc 33.6 g/dL (31.5-36.5); Mean Corpuscular Volume 91 fL (80-100); NEUTROPHILS ABSOLUTE AUTO 10.18 K/mm3 (1.96-9.15); NEUTROPHILS PERCENT AUTO 86 % (41-73); NRBC ABSOLUTE 0.00 K/mm3 (0.00-0.02); NRBC Auto 0.0 /100 WBC (0.0-0.2); Platelet Count 184 K/mm3 (150-400); RDW Coefficient Variation 16.9 % (11.7-14.2); RDW Standard Deviation 55.0 fL (35.1-46.3)
[2024-11-30 10:48] LABS: Alanine Aminotransfer (ALT/SGP 23.0 U/L (12-78); Albumin, Blood 3.0 g/dL (3.4-5.0); Albumin/Globulin Ratio 0.8 (0.8-1.8); Anion Gap 13.0 mmol/L (3-11); Aspartate Aminotrans (AST/SGOT 71.0 U/L (12-37); Bilirubin, Total 1.0 mg/dL (0.1-1.0); Blood Urea Nitrogen 26.0 mg/dL (8-24); CO2, Blood 18.0 mmol/L (21-32); Calcium, Blood 10.9 mg/dL (8.5-10.1); Chloride, Blood 108.0 mmol/L (98-108); Creatinine, Blood 1.06 mg/dL (0.40-1.00); Globulin, Blood 4.0 g/dL (2.2-4.0); Glucose, Blood 81.0 mg/dL (70-99); Potassium, Blood 5.5 mmol/L (3.5-5.5); Sodium, Blood 133.0 mmol/L (136-145); Total Protein, Blood 7.0 g/dL (6.4-8.2)
[2024-11-30 14:05] LABS: Source, Urine Clean Catch
[2024-11-30 14:15] LABS: Bilirubin, Urine Neg (Neg); Color, Urine Yellow (P-Yellow); Glucose Qualitative, Urine Neg (Neg); Ketones, Urine Neg (Neg); Leukocyte Esterase, Urine 1+ (Neg); Protein, Urine 2+ (Neg); Specific Gravity, Urine 1.020 (1.003-1.022); Urobilinogen, Urine NORM (Normal)
[2024-11-30 15:00] VITALS: BP 133/59
== END 2024-11-30 15:10 | disposition home or self-care (01) ==
LOC: ER 08:47
PROVIDERS: Physician Assistant
DX: R53.1 Weakness (principal); Z87.891 Personal history of nicotine dependence
CPT/HCPCS: 51701; 71046; 80053; 81001; 83690; 85025; 87086; 93005; 93010; 99285-25

== ENCOUNTER 2024-12-15 15:32 | Emergency (ER) | payer OTHER ==
[~2024-12-15] VITALS: Ht 157.5 cm; Wt 47.2 kg
[2024-12-15 16:50] LABS: BASOPHILS ABSOLUTE AUTO 0.07 K/mm3 (0.00-0.23); BASOPHILS PERCENT AUTO 1 % (0-2); EOSINOPHILS ABSOLUTE AUTO 0.13 K/mm3 (0.00-0.68); EOSINOPHILS PERCENT AUTO 2 % (0-6); Hematocrit 32.9 % (33.0-51.0); Hemoglobin 10.7 g/dL (11.5-16.0); IMMATURE GRAN ABSOLUTE AUTO 0.07 K/mm3 (0.00-0.10); IMMATURE GRAN PERCENT AUTO 1 % (0-1); LYMPHOCYTES ABSOLUTE AUTO 0.89 K/mm3 (0.84-5.20); LYMPHOCYTES PERCENT AUTO 12 % (21-46); MONOCYTES ABSOLUTE AUTO 0.57 K/mm3 (0.16-1.47); MONOCYTES PERCENT AUTO 8 % (4-13); Mean Corpuscular HGB Conc 32.5 g/dL (31.5-36.5); Mean Corpuscular Volume 95 fL (80-100); NEUTROPHILS ABSOLUTE AUTO 5.67 K/mm3 (1.96-9.15); NEUTROPHILS PERCENT AUTO 77 % (41-73); NRBC ABSOLUTE 0.02 K/mm3 (0.00-0.02); NRBC Auto 0.3 /100 WBC (0.0-0.2); RDW Coefficient Variation 19.5 % (11.7-14.2); RDW Standard Deviation 67.9 fL (35.1-46.3)
[2024-12-15 17:07] LABS: Platelet Count 173 K/mm3 (150-400)
[2024-12-15 17:11] LABS: Alanine Aminotransfer (ALT/SGP 62.0 U/L (12-78); Albumin, Blood 3.2 g/dL (3.4-5.0); Albumin/Globulin Ratio 0.8 (0.8-1.8); Anion Gap 8.0 mmol/L (3-11); Aspartate Aminotrans (AST/SGOT 46.0 U/L (12-37); Bilirubin, Total 0.4 mg/dL (0.1-1.0); Blood Urea Nitrogen 90.0 mg/dL (8-24); CO2, Blood 21.0 mmol/L (21-32); Calcium, Blood 10.7 mg/dL (8.5-10.1); Chloride, Blood 112.0 mmol/L (98-108); Creatinine, Blood 0.78 mg/dL (0.40-1.00); Globulin, Blood 4.2 g/dL (2.2-4.0); Glucose, Blood 115.0 mg/dL (70-99); Potassium, Blood 3.5 mmol/L (3.5-5.5); Sodium, Blood 137.0 mmol/L (136-145); Total Protein, Blood 7.4 g/dL (6.4-8.2)
[2024-12-15] MEDS ORDERED: NYSTATIN15 GM TOP (19:07)
[2024-12-15] MEDS ORDERED: CEPH500 PO (19:07)
[2024-12-15 19:36] VITALS: BP 127/59
== END 2024-12-15 19:38 | disposition home or self-care (01) ==
LOC: ER 15:32
PROVIDERS: Emergency Medicine
DX: K94.22 Gastrostomy infection (principal); L03.311 Cellulitis of abdominal wall; B37.9 Candidiasis, unspecified; Z79.899 Other long term (current) drug therapy; Z79.2 Long term (current) use of antibiotics; E78.5 Hyperlipidemia, unspecified; N18.30 Chronic kidney disease, stage 3 unspecified; Z87.891 Personal history of nicotine dependence
CPT/HCPCS: 36415; 80053; 85025; 99283; A9270

== ENCOUNTER → 2025-01-24 | Outpatient (CLI) | payer OTHER ==
[~2025-01-24] MED LIST changes: +CEPH500 PO; +NYSTATIN15 GM TOP
[2025-01-24 16:53] LABS: BASOPHILS ABSOLUTE AUTO 0.05 K/mm3 (0.00-0.23); BASOPHILS PERCENT AUTO 1 % (0-2); EOSINOPHILS ABSOLUTE AUTO 0.16 K/mm3 (0.00-0.68); EOSINOPHILS PERCENT AUTO 3 % (0-6); Hematocrit 37.9 % (33.0-51.0); Hemoglobin 12.1 g/dL (11.5-16.0); IMMATURE GRAN ABSOLUTE AUTO 0.03 K/mm3 (0.00-0.10); IMMATURE GRAN PERCENT AUTO 1 % (0-1); LYMPHOCYTES ABSOLUTE AUTO 0.81 K/mm3 (0.84-5.20); LYMPHOCYTES PERCENT AUTO 15 % (21-46); MONOCYTES ABSOLUTE AUTO 0.46 K/mm3 (0.16-1.47); MONOCYTES PERCENT AUTO 9 % (4-13); Mean Corpuscular HGB Conc 31.9 g/dL (31.5-36.5); Mean Corpuscular Volume 95 fL (80-100); NEUTROPHILS ABSOLUTE AUTO 3.74 K/mm3 (1.96-9.15); NEUTROPHILS PERCENT AUTO 71 % (41-73); NRBC ABSOLUTE 0.00 K/mm3 (0.00-0.02); NRBC Auto 0.0 /100 WBC (0.0-0.2); Platelet Count 126 K/mm3 (150-400); RDW Coefficient Variation 15.9 % (11.7-14.2); RDW Standard Deviation 54.5 fL (35.1-46.3)
[2025-01-24 17:22] LABS: C-REACTIVE PROTEIN, EXT RANGE <0.290 mg/dL (0.000-0.300)
[2025-01-24 17:32] LABS: Alanine Aminotransfer (ALT/SGP 24 U/L (12-78); Albumin, Blood 3.5 g/dL (3.4-5.0); Albumin/Globulin Ratio 0.9 (0.8-1.8); Anion Gap 8 mmol/L (3-11); Aspartate Aminotrans (AST/SGOT 21 U/L (12-37); Bilirubin, Total 0.4 mg/dL (0.1-1.0); Blood Urea Nitrogen 54 mg/dL (8-24); CO2, Blood 27 mmol/L (21-32); Calcium, Blood 10.7 mg/dL (8.5-10.1); Chloride, Blood 104 mmol/L (98-108); Creatinine, Blood 0.82 mg/dL (0.40-1.00); Globulin, Blood 4.1 g/dL (2.2-4.0); Glucose, Blood 113 mg/dL (70-99); Potassium, Blood 4.2 mmol/L (3.5-5.5); Sodium, Blood 135 mmol/L (136-145); Thyroid Stimulating Hormone 0.015 uIU/mL (0.360-4.800); Total Protein, Blood 7.6 g/dL (6.4-8.2)
== END | disposition home or self-care (01) ==
LOC: LAB 15:27 → LAB SHORT 15:27
PROVIDERS: Student in an Organized Health Care Education/Training Program
DX: E03.9 Hypothyroidism, unspecified (principal); R63.4 Abnormal weight loss
CPT/HCPCS: 80053; 84443; 85025; 85651; 86140